=== PATIENT | female | born 1950 | race Caucasian/White ===

== ENCOUNTER 2016-09-02 17:47 | Inpatient (IN) | payer BC ==
[~2016-09-02] VITALS: Ht 152.4 cm; Wt 86.0 kg
[~2016-09-02 17:47] MED LIST: ADV25050 INH; AMLO-147 PO; ASC500 PO; DOCU250C58 PO; FAMO-95 PO; FER325 PO; FLORANEX PO; FLUO10CA66 PO; FURO20TA3 PO; HC1C30 TOP; IPRA4AER IH; IPRA4AER INHALATION; ISOS30TA5 PO; LAS20I PO; LEVO50TA71 PO; LOSA100T47 PO; MEMA5TAB14 PO; METF500T4 PO; METO-448 PO; OLAN2.5T4 PO; OMEG-135 PO; PIOG15TA21 PO; POT25TAB PO; PRAV10TA43 PO; QVAR40 INH; SUCR1TAB56 PO
[2016-09-02] MEDS ORDERED: SOD CHLORIDE 0.9% 500 ML IV STA (18:02)
[2016-09-02] MEDS ORDERED: morphine 2 MG INJ IV STA (18:02)
[2016-09-02 18:21] VITALS: TEMP 98.6
[2016-09-02 18:28] LABS: ADD SCAN DIFF NO
[2016-09-02 18:31] LABS: HEMATOCRIT 43.7 % (37.0-47.0); HEMOGLOBIN 13.7 g/dl (12.0-16.0); MEAN CORPUSCULAR HEMOGLOBIN 27.2 pg (29.0-33.0); MEAN CORPUSCULAR HGB CONC 31.4 g/dl (32.0-37.0); MEAN CORPUSCULAR VOLUME 86.7 fl (82.0-101.0); MEAN PLATELET VOLUME 9.1 fl (7.4-10.4); PLATELET COUNT 295 10^3/UL (140-415); RED BLOOD COUNT 5.04 10^6/ul (4.20-5.40); RED CELL DISTRIBUTION WIDTH 18.6 % (11.5-14.5); WHITE BLOOD COUNT 6.8 10^3/ul (4.8-10.8)
[2016-09-02 18:43] LABS: ALBUMIN 4.2 g/dl (3.3-4.9); INR 1.14; PROTIME 14.6 Sec (12.2-14.2); PT RATIO 1.1
[2016-09-02 18:44] LABS: PARTIAL THROMBOPLASTIN TIME 38.7 Sec (25.0-35.0); POTASSIUM 4.7 mmol/L (3.5-5.1)
[2016-09-02 18:46] LABS: ALBUMIN/GLOBULIN RATIO 0.95; BILIRUBIN,INDIRECT 0.4 mg/dl (0-1.1); BILIRUBIN,TOTAL 0.4 mg/dl (0.2-1.3); CREATININE 1.33 mg/dl (0.44-1.00); TOTAL PROTEIN 8.6 g/dl (6.1-8.1)
[2016-09-02 18:47] LABS: CALCIUM 10.2 mg/dl (8.4-10.2)
[2016-09-02] MEDS ORDERED: SOD CHLORIDE 0.9% 1,000 ML IV ONE (19:04)
--- NOTE | 2016-09-02 19:09 | RADRPT ---
PROCEDURE: CT abdomen and pelvis without IV contrast. CLINICAL INDICATION: Abdominal pain TECHNIQUE: CT scan of the abdomen and pelvis without contrast was performed on the [employer] volumetric [address] scanner. The patient was scanned without intravenous contrast. Coronal and sagittal refo rmatted images were obtained from the axial source images. The CTDI vol is 19.03 mGy and the DLP is 1074.01 mGy-cm. COMPARISON: 12/22/2014 FINDINGS: CT abdomen: Mild dependent changes in the lung bases is seen. The remaining lung bases are clear. The heart si ze is not enlarged and is without pericardial thickening or effusion. Pericardial calcifications are again noted. The liver is normal in size and density and is without focal mass or intrahepatic biliary dilatation . The spleen is normal in size and homogeneous in density. The stomach is grossly unremarkable. T he pancreas as visualized is normal. The gallbladder and biliary tree are unremarkable and there is no evidence for common bile duct dilatation. The adrenal glands are symmetric and normal. The rig ht kidney is atrophic. Bilateral renal cortical scarring is seen. No renal calculus or obstructive uropathy or mass lesion is seen. The aorta is of normal in caliber. There is no retroperitoneal lymphadenopathy. The jorge a hepatis region is clear. A large ventral hernia is once again seen. Segments of small bowel as well as the transverse colon are once again seen within the hernia sac. Multiple moderately dilated and fluid-f illed segments of small bowel is seen. A transition point is seen within the hernia sac. No inflam matory changes in the periappendiceal region is seen. CT pelvis: The pelvic organs are normal. The pelvic sidewalls and inguinal regions are clear. No pelvic mass, lymphadenopathy, or free fluid is seen. No acute inflammation is seen. The urinary bladder is wit hin normal limits. Degenerative spondylosis of the lumbar spine is seen. No osteolytic or osteoblastic lesion is detec vj. IMPRESSION: 1. CT findings consistent with a small bowel obstruction secondary to a ventral hernia as described above. 2. Transverse colon and the ventral hernia sac once again seen. 3. Atrophic right kidney which is mildly decreased in size compared to the prior examination with b ilateral renal cortical scarring again seen. RPTAT: HPNM Mehul Cornell, Physician Date Time Electronically viewed and signed by Mehul Cornell, Physician on 09/02/2016 19:09 /
[2016-09-02 19:24] LABS: ADD UMIC YES; URINE BILIRUBIN (Dip) NEGATIVE (NEGATIVE); URINE BLOOD (Dip) NEGATIVE (NEGATIVE); URINE COLOR LT. YELLOW (YELLOW); URINE GLUCOSE (Dip) NEGATIVE (NEGATIVE); URINE KETONES (Dip) NEGATIVE (NEGATIVE); URINE LEUKOCYTE ESTERASE (Dip) TRACE (NEGATIVE); URINE NITRITE (Dip) NEGATIVE (NEGATIVE); URINE TOTAL PROTEIN (Dip) 2+ (NEGATIVE); URINE UROBILINOGEN (Dip) 0.2 E.U./dL (0.1-1.0)
[2016-09-02] MEDS ORDERED: MIDAZOLAM 1 MG/ML 2 ML INJ IV ONE (19:30)
[2016-09-02 19:49] LABS: SQUAMOUS EPITHELIAL CELL,UR OCCASIONAL; URINE RBCS 0-2 /HPF (0)
[2016-09-02 19:51] LABS: BACTERIA,URINE RARE
[2016-09-02] MEDS ORDERED: ACETAMINOPHEN 325 MG TAB PO PRN (20:00)
[2016-09-02] MEDS ORDERED: ONDANSETRON 4 MG INJ IV PRN (20:00)
--- NOTE | 2016-09-02 20:41 | ERA ---
ER Documentation Chief Complaint Date/Time DATE: 09/02/16 TIME: 20:27 Chief Complaint ABD PAIN X3 DAYS, NO N/V HPI 66-year-old female with a history of diabetes, hypertension, and perforated gastric ulcer status post ex lap in 2010 complicated by a large ventral hernia presenting with abdominal pain for about 3 days. The pain is diffuse, constant , burning in quality, 5 out of 10. Worse with eating, nothing makes it better. She has associated constipation and difficulty passing gas. She denies nausea , vomiting, dysuria, fevers, chills. ROS All systems reviewed and are negative except as per history of present illness. Medications Home Meds Active Scripts Albuterol/Ipratropium* (Combivent Respimat*) 20-100 Mcg/Inh - 4 Gm Aer.w.adap, 1 PUFF IH QID Y for SHORTNESS OF BREATH, #1 VIAL Prov:GABEJANUARYFaustina . 12/25/14 Salmeterol Xinaf/Fluticasone* (Advair*) 250-50 Diskus Inhaler, 1 INH INH BID, # 1 VIAL Prov:JANUARY BERNALFaustina . 12/25/14 Furosemide* (Lasix*) 10 Mg/Ml Soln, 40 MG PO BID DIURETICS for 30 Days Prov:GONZALEZ BERNALFORMERLY [facility], [facility] HOSPITALFaustina . 12/25/14 Lactobacillus Acidoph/Bulgaricus* (Floranex*) 1 Tab Chew, 1 TAB PO BID for 30 Days Prov:GABEJANUARYFaustina . 12/25/14 Ascorbic Acid (Vitamin C) 500 Mg Tab, 500 MG PO DAILY for 30 Days, TAB Prov:GABEGONZALEZJOO . 12/25/14 Famotidine* (Pepcid* AC) 20 Mg Tab, 20 MG PO BID for 30 Days Prov:GABEJANUARYFaustina . 12/25/14 Ferrous Sulfate* (Ferrous Sulfate*) 325 Mg Tabec, 325 MG PO BID for 30 Days Prov:GABEGONZALEZJOO . 12/25/14 Furosemide* (Furosemide*) 20 Mg Tablet, 40 MG PO DAILY for 30 Days, TAB Prov:GABEGONZALEZJOO . 12/25/14 Reported Medications Albuterol/Ipratropium* (Combivent Respimat*) 20-100 Mcg/Inh - 4 Gm Aer.w.adap, 1 PUFF INHALATION QID, #1 INHALER 10/07/15 Beclomethasone Dip (Qvar 40) 1 Puff Inha, 1 PUFF INH BID, #1 INHALER 10/07/15 Ascorbic Acid (Vitamin C) 500 Mg Tab, 500 MG PO DAILY, TAB 10/07/15 Pot Chloride/Pot Bicarb/Cit Ac (Potassium Cl 25 Meq Tab Eff) 25 Meq Tablet.eff, 25 MEQ PO 10/07/15 Memantine HCl (Memantine HCl) 5 Mg Tablet, 5 MG PO BID, #60 TAB 10/07/15 Metoprolol Tartrate* (Lopressor*) 25 Mg Tab, 12.5 MG PO BID, #60 TAB 10/07/15 Levothyroxine Sodium* (Levoxyl*) 50 Mcg Tablet, 50 MCG PO AC BREAKFAST, TAB 12/21/14 Hydrocortisone* Topical (Hydrocortisone* Topical) 1%-28.35 Gm Cream..g., 1 APPLIC TOP BID, TUB 10/16/14 Fish Oil* (Fish Oil*) 1,000 Mg Cap, 1000 MG PO DAILY, CAP 10/16/14 Fluoxetine Hcl* (Prozac*) 10 Mg Capsule, 10 MG PO DAILY, CAP 10/16/14 Metformin Hcl* (Metformin Hcl*) 500 Mg Tablet, 500 MG PO BID, TAB 10/16/14 Amlodipine Besylate* (Amlodipine Besylate*) 10 Mg Tablet, 10 MG PO DAILY, TAB 10/16/14 Docusate Sodium* (Colace*) 250 Mg Capsule, 250 MG PO DAILY, CAP 10/16/14 Sucralfate* (Carafate*) 1 Gm Tab, 1 GM PO QID, TAB 10/16/14 Olanzapine* (Zyprexa*) 2.5 Mg Tablet, 7.5 MG PO QHS, TAB 10/16/14 Pravastatin Sodium* (Pravastatin Sodium*) 10 Mg Tablet, 10 MG PO HS, TAB 10/16/14 Pioglitazone Hcl* (Pioglitazone Hcl*) 15 Mg Tablet, 15 MG PO DAILY, TAB 10/16/14 Losartan Potassium* (Cozaar*) 100 Mg Tablet, 100 MG PO DAILY, TAB 10/16/14 Isosorbide Mononitrate* (Isosorbide Mononitrate*) 30 Mg Tab.er.24h, 30 MG PO BID , TAB 10/16/14 Allergies Allergies: Coded Allergies: sulfamethoxazole (Verified Allergy, Unknown, rash, 10/05/15) trimethoprim (Verified Allergy, Unknown, rash, 10/05/15) PMhx/Soc History of Surgery: Yes (Ex lap,) Anesthesia Reaction: No Hx Respiratory Disorders: Yes (sleep apnea) Hx Cardiac Disorders: Yes (htn, hld) Hx Psychiatric Problems: Yes (psychosis, depression) Hx Miscellaneous Medical Probl: Yes (hernia repair, perforated gastric ulcer) Hx Alcohol Use: No Hx Substance Use: No Hx Tobacco Use: No Smoking Status: Unknown if ever smoked FmHx Family History: No diabetes Physical Exam Vitals Vital Signs Date Time Temp Pulse Resp B/P Pulse Ox O2 Delivery O2 Flow Rate FiO2 09/02/16 18:21 98.6 87 17 156/120 94 Room Air 09/02/16 17:49 98.6 97 17 139/73 92 Physical Exam Const: Well-appearing, obese, no distress Head: Atraumatic Eyes: Normal Conjunctiva ENT: Normal External Ears, Nose and Mouth. Neck: Full range of motion..~ No meningismus. Resp: Clear to auscultation bilaterally Cardio: Regular rate and rhythm, no murmurs Abd: Large ventral hernia extending the full length of her well-healed surgical incision site, tympanitic to percussion, diffusely tender, no rebound or guarding. No overlying skin changes. Hyperactive bowel sounds Skin: No petechiae or rashes Back: No midline or flank tenderness Ext: No cyanosis, or edema Neur: Awake and alert Psych: Normal Mood and Affect Result Diagram: 09/02/16181409/02/165 Results 24 hrs Laboratory Tests Test 09/02/16 18:15 09/02/16 19:05 White Blood Count 6.810^3/ul Red Blood Count 5.0410^6/ul Hemoglobin 13.7g/dl Hematocrit 43.7% Mean Corpuscular Volume 86.7fl Mean Corpuscular Hemoglobin 27.2pg Mean Corpuscular Hemoglobin Concent 31.4g/dl Red Cell Distribution Width 18.6% Platelet Count 67772^3/UL Mean Platelet Volume 9.1fl Neutrophils % 64.4% Lymphocytes % 18.0% Monocytes % 17.1% Eosinophils % 0.1% Basophils % 0.3% Nucleated Red Blood Cells % 0.0/100WBC Neutrophils # 4.410^3/ul Lymphocytes # 1.210^3/ul Monocytes # 1.210^3/ul Eosinophils # 0.010^3/ul Basophils # 0.010^3/ul Nucleated Red Blood Cells # 0.010^3/ul Prothrombin Time 14.6Sec Prothrombin Time Ratio 1.1 INR International Normalized Ratio 1.14 Activated Partial Thromboplast Time 38.7Sec Sodium Level 141mmol/L Potassium Level 4.7mmol/L Chloride Level 96mmol/L Carbon Dioxide Level 28mmol/L Anion Gap 22 Blood Urea Nitrogen 54mg/dl Creatinine 1.33mg/dl Glucose Level 150mg/dl Calcium Level 10.2mg/dl Total Bilirubin 0.4mg/dl Direct Bilirubin 0.00mg/dl Indirect Bilirubin 0.4mg/dl Aspartate Amino Transf (AST/SGOT) 36IU/L Alanine Aminotransferase (ALT/SGPT) 39IU/L Alkaline Phosphatase 119IU/L Total Protein 8.6g/dl Albumin 4.2g/dl Globulin 4.40g/dl Albumin/Globulin Ratio 0.95 Urine Color LT. YELLOW Urine Clarity SLIGHTLY CLOUDY Urine pH 5.5 Urine Specific [place] 1.020 Urine Ketones NEGATIVE Urine Nitrite NEGATIVE Urine Bilirubin NEGATIVE Urine Urobilinogen 0.2 E.U./dL Urine Leukocyte Esterase TRACE Urine Microscopic RBC 0-2/HPF Urine Microscopic WBC 2-5/HPF Urine Squamous Epithelial Cells OCCASIONAL Urine Amorphous Urates MANY Urine Bacteria RARE Urine Hemoglobin NEGATIVE Urine Glucose NEGATIVE% Urine Total Protein 2+ Current Medications Medications (Trade) Dose Ordered Sig/Sloane Route PRN Reason Start Time Stop Time Status Last Admin Dose Admin Sodium Chloride (NS) 500 ml @ 500 mls/hr Q1H STAT IV 09/02/16 18:02 09/02/16 19:01 DC 09/02/16 18:15 Morphine Sulfate 2 mg 2 mg ONCE STAT IV 09/02/16 18:02 09/02/16 18:05 DC 09/02/16 18:16 Sodium Chloride (NS) 1,000 ml @ 1,000 mls/hr Q1H ONCE IV 09/02/16 19:04 09/02/16 20:03 DC 09/02/16 20:25 Midazolam HCl (Versed) 2 mg ONCE ONCE IV 09/02/16 19:30 09/02/16 19:31 DC 09/02/16 20:25 Ondansetron HCl (Zofran Inj) 4 mg BRIDGE ORDER PRN IV NAUSEA AND/OR VOMITING 09/02/16 20:00 09/03/16 19:59 Acetaminophen (Tylenol Tab) 650 mg ER BRIDGE PRN PO MILD PAIN/FEVER 09/02/16 20:00 09/03/16 19:59 Procedures/MDM Labs: Elevated BUN and creatinine Imaging: CT abdomen and pelvis: IMPRESSION: 1. CT findings consistent with a small bowel obstruction secondary to a ventral hernia as described above. 2. Transverse colon and the ventral hernia sac once again seen. 3. Atrophic right kidney which is mildly decreased in size compared to the prior examination with bilateral renal cortical scarring again seen. RPTAT: HPNM Physician Argenis Date Time Electronically viewed and signed by Physician Argenis on 09/02/2016 19 :09 Patient is presenting with abdominal pain and constipation. Vitals are stable. I have a low suspicion for perforated viscus, AAA, aortic dissection, or colitis. CT abdomen and pelvis consistent with small bowel obstruction. Labs showed evidence of likely dehydration with elevation in BUN and creatinine. There was no evidence of UTI. Versed was given and nasogastric tube placed for decompression. I spoke with Dr. Thomas, the surgeon on-call, who requested a small bowel follow-through in the morning. The patient will be admitted to the hospital for IV fluids, treatment of her SBO and surgical evaluation. Critical Care Time: 30 minutes Treatments/Evaluations: Close monitoring and treatment of unstable vital signs, cardiorespiratory, and neurologic status, while maintaining tight balance of fluid, respiratory, and cardiac interventions. This time includes discussing the case with the patient and the patients family. This time does not include all procedures stated elsewhere in this record. This time also includes reviewing old records, labs and radiological studies. This time includes examining and re-examining the patient. Additionally, this time also includes arranging care with admitting and consulting physicians. Accepting Care Team: Current data and ongoing care discussed. Time: Time of admission Primary Provider: Ivan Consulting: William Outstanding Data: none Departure Diagnosis: Primary Impression: Small bowel obstruction Additional Impression: Acute renal failure Qualified Code: N17.9 - Acute renal failure, unspecified acute renal failure type Condition: Serious JERROD CHANCE MD Sep 02, 2016 20:40
[2016-09-02 20:47] LABS: MONOCYTE # 1.1 10^3/ul (0.3-0.9); NEUTROPHIL # 3.2 10^3/ul (1.6-7.5)
[2016-09-02 20:48] LABS: PLATELET ESTIMATE PLT APPEAR ADEQUATE
[2016-09-02 21:30] VITALS: BP 143/86; RESP 21
[2016-09-02] MEDS: morphine 2 MG INJ IV PRN (23:38)
[2016-09-03] MEDS: SOD CHLORIDE 0.9% 1,000 ML IV SCH ×4 (00:13→20:15)
[2016-09-03] MEDS ORDERED: NACL 0.9% 3 ML SYG IV SCH (00:30)
[2016-09-03] MEDS ORDERED: METOCLOPRAMIDE 10 MG INJ IV PRN (00:30)
--- NOTE | 2016-09-03 00:41 | HP ---
Date/Time of Note Date/Time of Note DATE: 09/03/16 TIME: 00:40 Assessment/Plan VTE Prophylaxis VTE Prophylaxis Intervention: anti-embolic stocking Lines/Catheters IV Catheter Type (from Nrs): Peripheral IV Urinary Cath still in place: No Assessment/Plan Assessment/Plan 1) Small bowel obstruction - Admit to Med Surg - NGT placed in ER - NPO - Pain Control - CONSULT: Surgery - Dr. Thomas 2) Acute renal insufficiency/Acute kidney injury - Monitor - IV Hydration - AM Labs 3) Dementia with history of Psychosis - Resume usual medications once she is able to take PO 4) Ventral Hernia, Large - Dr. Thomas may or may not give advise on the management of this hernia. It will likely need to be addressed as an outpatient. HPI/ROS Admit Date/Time Admit Date/Time Sep 02, 2016 at 19:58 Hx of Present Illness 66-year-old female with a history of diabetes, hypertension, and perforated gastric ulcer status post ex lap in 2010 complicated by a large ventral hernia presenting with abdominal pain for about 3 days. The pain is diffuse, constant , burning in quality, 5 out of 10 per the ER physician. Worse with eating, nothing makes it better. She has associated constipation and difficulty passing gas. She denies nausea, vomiting, dysuria, fevers or chills. ER Course by ER Physician: CT abdomen and pelvis consistent with small bowel obstruction. Labs showed evidence of likely dehydration with elevation in BUN and creatinine. There was no evidence of UTI. Versed was given and nasogastric tube placed for decompression. I spoke with Dr. Thomas, the surgeon on-call, who requested a small bowel follow-through in the morning. The patient will be admitted to the hospital for IV fluids, treatment of her SBO and surgical evaluation. ROS General: Admits: Denies: Fever, Chills, Poor Appetite, Generalized Body Aches Eyes: Admits: Denies: Blurry Vision, Double Vision HENT: Admits: Denies: Ear Pain/Pressure, Runny/Stuffy Nose, Sore Throat Cardiovascular: Admits: Denies: Chest Pain, Palpitations, Leg Swelling Pulmonary: Admits: Denies: Cough, Wheeze, Shortness of Breath Gastrointestinal: Admits: Abdominal Pain, Large Hernia, Constipation Denies: Nausea, Vomiting, Diarrhea, Blood in Stool, Black-Colored Stool Urogenital: Admits: Denies: Burning with Urination, Urinary Frequency Musculoskeletal: Admits: Denies: Joint Pain, Joint Swelling, Muscle Pain Neurological: Admits: Denies: Headache, Dizziness, Numbness, Tingling, Shooting Pains Integumentary: Admits: Denies: Rash, Itch PMH/Family/Social Past Medical History HTN; Dyslipidemia; Psychosis; Depression; Sleep Apnea Past Surgical History Hernia Repair; Perforated Gastric Ulcer/Ex Lap, Past Surgical Hx: no surgical history Family History Significant Family History: other (No diabetes) Social History Smoking Status: Never smoker Exam/Review of Systems Vital Signs Vitals Vital Signs Date Time Temp Pulse Resp B/P Pulse Ox O2 Delivery O2 Flow Rate FiO2 09/02/16 21:30 98.2 92 21 143/86 91 09/02/16 21:15 Nasal Cannula 2.0 Exam Exam General: Elderly female, alert and oriented, in new Eyes: Sclera White, EOMI HENT: Normocephalic/Atraumatic, External Ears/Nose Normal, Moist Mucus Membranes Neck: Supple, Trachea Midline Cardiovascular: Normal Rate, Regular Rhythm, Normal S1 and S2, No Murmur, No Extra Sounds. Radial pulse +2/4. No pedal Edema. Pulmonary: Clear to Auscultation Bilaterally, Normal Respiratory Effort, No Rales, Rhonchi or Wheezes Gastrointestinal: Normoactive Bowel Sounds, Large ventral hernia extending the full length of her well-healed surgical incision site, diffusely tender, no rebound or guarding. No overlying skin changes. Urogenital: Deferred Musculoskeletal: Normal Muscle Bulk and Tone Neurological: CN II - XII Grossly Intact, Non-Focal, Speech Normal Integumentary: Normal Moisture and Temperature, Good Turgor, No Jaundice, No Rash, Dry skin on legs Lymphatic: No Cervical Lymphadenopathy Psychiatric: Appropriate Mood and Affect, Good Eye Contact, ansers appropriately Labs Result Diagram: 09/02/16181409/02/161814 Medications Medications Home Meds Active Scripts Albuterol/Ipratropium* (Combivent Respimat*) 20-100 Mcg/Inh - 4 Gm Aer.w.adap, 1 PUFF IH QID Y for SHORTNESS OF BREATH, #1 VIAL Prov:SHAYNE BERNAL 12/25/14 Salmeterol Xinaf/Fluticasone* (Advair*) 250-50 Diskus Inhaler, 1 INH INH BID, # 1 VIAL Prov:SHAYNE BERNAL 12/25/14 Furosemide* (Lasix*) 10 Mg/Ml Soln, 40 MG PO BID DIURETICS for 30 Days Prov:SHAYNE BERNAL 12/25/14 Lactobacillus Acidoph/Bulgaricus* (Floranex*) 1 Tab Chew, 1 TAB PO BID for 30 Days Prov:GONZALEZ BERNALNOV[facility] 12/25/14 Ascorbic Acid (Vitamin C) 500 Mg Tab, 500 MG PO DAILY for 30 Days, TAB Prov:[facility]ONZALEZ [facility]ERNALNOV[facility] 12/25/14 Famotidine* (Pepcid* AC) 20 Mg Tab, 20 MG PO BID for 30 Days Prov:GONZALEZ BERNALUNC [facility]. 12/25/14 Ferrous Sulfate* (Ferrous Sulfate*) 325 Mg Tabec, 325 MG PO BID for 30 Days Prov:GONZALEZ [facility]ERNALNOV[facility] 12/25/14 Furosemide* (Furosemide*) 20 Mg Tablet, 40 MG PO DAILY for 30 Days, TAB Prov:SHAYNE BERNAL . 12/25/14 Reported Medications Albuterol/Ipratropium* (Combivent Respimat*) 20-100 Mcg/Inh - 4 Gm Aer.w.adap, 1 PUFF INHALATION QID, #1 INHALER 10/07/15 Beclomethasone Dip (Qvar 40) 1 Puff Inha, 1 PUFF INH BID, #1 INHALER 10/07/15 Ascorbic Acid (Vitamin C) 500 Mg Tab, 500 MG PO DAILY, TAB 10/07/15 Pot Chloride/Pot Bicarb/Cit Ac (Potassium Cl 25 Meq Tab Eff) 25 Meq Tablet.eff, 25 MEQ PO 10/07/15 Memantine HCl (Memantine HCl) 5 Mg Tablet, 5 MG PO BID, #60 TAB 10/07/15 Metoprolol Tartrate* (Lopressor*) 25 Mg Tab, 12.5 MG PO BID, #60 TAB 10/07/15 Levothyroxine Sodium* (Levoxyl*) 50 Mcg Tablet, 50 MCG PO AC BREAKFAST, TAB 12/21/14 Hydrocortisone* Topical (Hydrocortisone* Topical) 1%-28.35 Gm Cream..g., 1 APPLIC TOP BID, TUB 10/16/14 Fish Oil* (Fish Oil*) 1,000 Mg Cap, 1000 MG PO DAILY, CAP 10/16/14 Fluoxetine Hcl* (Prozac*) 10 Mg Capsule, 10 MG PO DAILY, CAP 10/16/14 Metformin Hcl* (Metformin Hcl*) 500 Mg Tablet, 500 MG PO BID, TAB 10/16/14 Amlodipine Besylate* (Amlodipine Besylate*) 10 Mg Tablet, 10 MG PO DAILY, TAB 10/16/14 Docusate Sodium* (Colace*) 250 Mg Capsule, 250 MG PO DAILY, CAP 10/16/14 Sucralfate* (Carafate*) 1 Gm Tab, 1 GM PO QID, TAB 10/16/14 Olanzapine* (Zyprexa*) 2.5 Mg Tablet, 7.5 MG PO QHS, TAB 10/16/14 Pravastatin Sodium* (Pravastatin Sodium*) 10 Mg Tablet, 10 MG PO HS, TAB 10/16/14 Pioglitazone Hcl* (Pioglitazone Hcl*) 15 Mg Tablet, 15 MG PO DAILY, TAB 10/16/14 Losartan Potassium* (Cozaar*) 100 Mg Tablet, 100 MG PO DAILY, TAB 10/16/14 Isosorbide Mononitrate* (Isosorbide Mononitrate*) 30 Mg Tab.er.24h, 30 MG PO BID , TAB 10/16/14 Current Medications Medications (Trade) Dose Ordered Sig/[place] Route PRN Reason Start Time Stop Time Status Last Admin Dose Admin Sodium Chloride (NS) 500 ml @ 500 mls/hr Q1H STAT IV 09/02/16 18:02 09/02/16 19:01 DC 09/02/16 18:15 Morphine Sulfate 2 mg 2 mg ONCE STAT IV 09/02/16 18:02 09/02/16 18:05 DC 09/02/16 18:16 Sodium Chloride (NS) 1,000 ml @ 1,000 mls/hr Q1H ONCE IV 09/02/16 19:04 09/02/16 20:03 DC 09/02/16 20:25 Midazolam HCl (Versed) 2 mg ONCE ONCE IV 09/02/16 19:30 09/02/16 19:31 DC 09/02/16 20:25 Ondansetron HCl (Zofran Inj) 4 mg BRIDGE ORDER PRN IV NAUSEA AND/OR VOMITING 09/02/16 20:00 09/03/16 19:59 Acetaminophen (Tylenol Tab) 650 mg ER BRIDGE PRN PO MILD PAIN/FEVER 09/02/16 20:00 09/03/16 19:59 Procedures Procedures Laboratory Tests Test 09/02/16 18:15 09/02/16 19:05 White Blood Count 6.810^3/ul Red Blood Count 5.0410^6/ul Hemoglobin 13.7g/dl Hematocrit 43.7% Mean Corpuscular Volume 86.7fl Mean Corpuscular Hemoglobin 27.2pg Mean Corpuscular Hemoglobin Concent 31.4g/dl Red Cell Distribution Width 18.6% Platelet Count 01311^3/UL Mean Platelet Volume 9.1fl Neutrophils % 64.4% Lymphocytes % 18.0% Monocytes % 17.1% Eosinophils % 0.1% Basophils % 0.3% Nucleated Red Blood Cells % 0.0/100WBC Neutrophils # 4.410^3/ul Lymphocytes # 1.210^3/ul Monocytes # 1.210^3/ul Eosinophils # 0.010^3/ul Basophils # 0.010^3/ul Nucleated Red Blood Cells # 0.010^3/ul Prothrombin Time 14.6Sec Prothrombin Time Ratio 1.1 INR International Normalized Ratio 1.14 Activated Partial Thromboplast Time 38.7Sec Sodium Level 141mmol/L Potassium Level 4.7mmol/L Chloride Level 96mmol/L Carbon Dioxide Level 28mmol/L Anion Gap 22 Blood Urea Nitrogen 54mg/dl Creatinine 1.33mg/dl Glucose Level 150mg/dl Calcium Level 10.2mg/dl Total Bilirubin 0.4mg/dl Direct Bilirubin 0.00mg/dl Indirect Bilirubin 0.4mg/dl Aspartate Amino Transf (AST/SGOT) 36IU/L Alanine Aminotransferase (ALT/SGPT) 39IU/L Alkaline Phosphatase 119IU/L Total Protein 8.6g/dl Albumin 4.2g/dl Globulin 4.40g/dl Albumin/Globulin Ratio 0.95 Urine Color LT. YELLOW Urine Clarity SLIGHTLY CLOUDY Urine pH 5.5 Urine Specific [place] 1.020 Urine Ketones NEGATIVE Urine Nitrite NEGATIVE Urine Bilirubin NEGATIVE Urine Urobilinogen 0.2 E.U./dL Urine Leukocyte Esterase TRACE Urine Microscopic RBC 0-2/HPF Urine Microscopic WBC 2-5/HPF Urine Squamous Epithelial Cells OCCASIONAL Urine Amorphous Urates MANY Urine Bacteria RARE Urine Hemoglobin NEGATIVE Urine Glucose NEGATIVE% Urine Total Protein 2+ PROCEDURE: CT abdomen and pelvis without IV contrast. CLINICAL INDICATION: Abdominal pain COMPARISON: 12/22/2014 IMPRESSION: 1. CT findings consistent with a small bowel obstruction secondary to a ventral hernia as described above. 2. Transverse colon and the ventral hernia sac once again seen. 3. Atrophic right kidney which is mildly decreased in size compared to the prior examination with bilateral renal cortical scarring again seen. JUNAID CARMICHAEL DO Sep 03, 2016 00:40 2. Transverse colon and the ventral hernia sac once again seen. 3. Atrophic right kidney which is mildly decreased in size compared to the prior examination with bilateral renal cortical scarring again seen. JUNAID CARMICHAEL DO Sep 03, 2016 00:40 09/02/16 21:15 Nasal Cannula 2.0 Labs Result Diagram: 09/02/16181409/02/16 181 Medications Medications Current Medications Morphine Sulfate 2 mg 2 mg Q2H PRN IV PAIN Last administered on 09/02/16t 23:38 ; Admin Dose 2 MG; Start 09/02/16 at 23:30 Sodium Chloride (NS) 1,000 ml @ 100 mls/hr Q10H IV ; Start 09/03/16 at 00:13; Status UNV Metoclopramide HCl (Reglan) 10 mg Q6H PRN IV NAUSEA AND/OR VOMITING; Start 03/12 at 00:30; Status UNV Famotidine (Pepcid Iv) 20 mg Q12 IV ; Start 09/03/16 at 09:00; Status UNV Salmeterol Xinafoate/ Fluticasone (Advair 250/50 Diskus) 1 inh BID INH ; Start 09/03/16 at 09:00; Status UNV Miscellaneous Information 1 puff BID INH ; Start 09/03/16 at 09:00; Status UNV Furosemide (Lasix) 20 mg DAILY@06 IV ; Start 09/03/16 at 06:00; Status UNV Levothyroxine Sodium (Synthroid Iv) 50 mcg DAILY ONCE IV ; Start 09/03/16 at 09 :00; Stop 09/03/16 at 09:01; Status UNV Labetalol HCl (Labetalol) 10 mg BID ONCE IV ; Start 09/03/16 at 09:00; Stop 03/12 at 09:01; Status JUNAID VILLASEÑOR DO Sep 03, 2016 00:40
[2016-09-03] MEDS ORDERED: GLUCOSE GEL 15 GRAM TUBE BUCCAL PRN (01:00)
[2016-09-03] MEDS ORDERED: GLUCAGON 1 MG INJ IM PRN (01:00)
[2016-09-03] MEDS: Insulin NOVOLOG SS MILD Algorithm (NPO/TPN/ENTERAL FEEDS) SC SCH ×6 (01:00→20:21)
[2016-09-03] MEDS ORDERED: GLUCOSE GEL 15 GRAM TUBE PO PRN ×2 (01:00)
[2016-09-03] MEDS ORDERED: DEXTROSE 50% 50 ML SYRINGE IV PRN (01:00)
[2016-09-03] MEDS ORDERED: INSULIN ASPART [NOVOLOG] 3 ML PEN SC SCH (01:00)
[2016-09-03 04:54] LABS: ADD SCAN DIFF NO
[2016-09-03 04:59] LABS: BASOPHILS % 0.4 % (0.0-2.0); EOSINOPHILS % 0.5 % (0.0-7.0); HEMATOCRIT 42.7 % (37.0-47.0); HEMOGLOBIN 13.1 g/dl (12.0-16.0); LYMPHOCYTES # 0.9 10^3/ul (0.8-2.9); LYMPHOCYTES % 16.8 % (15.0-51.0); MEAN CORPUSCULAR HGB CONC 30.7 g/dl (32.0-37.0); MEAN PLATELET VOLUME 9.1 fl (7.4-10.4); MONOCYTE # 0.9 10^3/ul (0.3-0.9); NEUTROPHIL # 3.6 10^3/ul (1.6-7.5); NEUTROPHILS % 65.1 % (39.0-77.0); PLATELET COUNT 263 10^3/UL (140-415); RED BLOOD COUNT 4.85 10^6/ul (4.20-5.40); RED CELL DISTRIBUTION WIDTH 18.6 % (11.5-14.5); WHITE BLOOD COUNT 5.5 10^3/ul (4.8-10.8)
[2016-09-03] MEDS: LEVOTHYROXINE 100 MCG VIAL IV SCH (05:21)
[2016-09-03 05:23] LABS: POTASSIUM 4.4 mmol/L (3.5-5.1)
[2016-09-03 05:25] LABS: CREATININE 1.44 mg/dl (0.44-1.00)
[2016-09-03 05:26] LABS: CALCIUM 9.3 mg/dl (8.4-10.2); MAGNESIUM 1.9 mg/dl (1.7-2.5)
[2016-09-03] MEDS ORDERED: FUROSEMIDE 20 MG INJ IV SCH (06:00)
[2016-09-03 08:04] VITALS: BP 135/72; RESP 20
[2016-09-03] MEDS: ALBUTEROL/IPRATROPIUM (NEB) 3 ML AMP HHN SCH ×4 (08:23→20:21)
[2016-09-03] MEDS ORDERED: LABETALOL HCL 20MG INJ IV ONE (09:00)
[2016-09-03] MEDS ORDERED: FAMOTIDINE 20 MG INJ IV SCH (09:00)
[2016-09-03] MEDS ORDERED: BECLOMETHASONE DIP INH SCH (09:00)
[2016-09-03] MEDS: FAMOTIDINE 20 MG INJ IV SCH (09:00)
[2016-09-03] MEDS ORDERED: DIATR MEGLU/DIATRIZOATE SODIUM 120 ML BTL ONE ×2 (11:19)
--- NOTE | 2016-09-03 11:40 | PN ---
Date/Time of Note Date/Time of Note DATE: 09/03/16 TIME: 11:35 Assessment/Plan VTE Prophylaxis VTE Prophylaxis Intervention: SCD's Lines/Catheters IV [facility] Type [facility] Peripheral IV Urinary Cath still in place: No Assessment/Plan Chief Complaint/Hosp Course Assessment and plan 1. Small bowel obstruction. Continue n.p.o. for now. NG tube was placed in the ER. Continue with analgesics and IV hydration. Surgeon following. Patient for small bowel follow-through 2. Acute on likely chronic kidney disease. Monitor renal panel. Continue IV hydration. Lace Roller following. 3. History of dementia with psychosis. Patient to be resumed on her Prozac and Zyprexa once able to tolerate oral intake. 4. History of dementia. Continue on Namenda once able to tolerate oral intake 5. Essential hypertension. Will provide with IV antihypertensives as needed 6. Obesity. Weight reduction to be advised 7. Diabetes. Continue on insulin regimen 8. History of COPD. Patient resumed on bronchodilators as needed Disposition and plan: Patient for small bowel follow-through. Await surgeon recommendations. Discussed plan of care with Dr. Carroll Problems: Subjective 24 Hr Interval Summary Free Text/Dictation patient for small bowel follow through Exam/Review of Systems Vital Signs Vitals Vital Signs Date Time Temp Pulse Resp B/P Pulse Ox O2 Delivery O2 Flow Rate FiO2 09/03/16 10:15 Nasal Cannula 2.0 09/03/16 08:35 107 20 96 09/03/16 08:04 98.5 135/72 Intake and Output 09/02/16 09/02/16 09/03/16 14:59 22:59 06:59 Intake Total 800 ml Output Total 100 ml Balance 700 ml Exam patient for small bowel follow through Results Result Diagram: 09/03/16 0418 09/03/16 0418 Results 24 hrs Laboratory Tests Test 09/02/16 18:15 09/02/16 19:05 09/03/16 01:21 09/03/16 04:18 White Blood Count 6.8 5.5 Red Blood Count 5.04 # 4.85 Hemoglobin 13.7 # 13.1 Hematocrit 43.7 # 42.7 Mean Corpuscular Volume 86.7 88.0 Mean Corpuscular Hemoglobin 27.2 L 27.0 L Mean Corpuscular Hemoglobin Concent 31.4 L 30.7 L Red Cell Distribution Width 18.6 H 18.6 H Platelet Count 295 263 Mean Platelet Volume 9.1 # 9.1 Neutrophils % 47.0 65.1 Lymphocytes % 15.0 16.8 Monocytes % 16.0 H 17.0 H Eosinophils % 0.5 Basophils % 0.4 Nucleated Red Blood Cells % 0.0 0.0 Neutrophils # 3.2 3.6 Lymphocytes # 1.0 0.9 Monocytes # 1.1 H 0.9 Eosinophils # 0.0 Basophils # 0.0 Nucleated Red Blood Cells # 0.0 Platelet Estimate PLT APPEAR ADEQUATE Prothrombin Time 14.6 H Prothrombin Time Ratio 1.1 INR International Normalized Ratio 1.14 Activated Partial Thromboplast Time 38.7 H Sodium Level 141 143 Potassium Level 4.7 4.4 Chloride Level 96 L 100 Carbon Dioxide Level 28 30 Anion Gap 22 H 17 H Blood Urea Nitrogen 54 H 54 H Creatinine 1.33 H 1.44 H Glucose Level 150 119 Calcium Level 10.2 9.3 Total Bilirubin 0.4 Direct Bilirubin 0.00 Indirect Bilirubin 0.4 Aspartate Amino Transf (AST/SGOT) 36 Alanine Aminotransferase (ALT/SGPT) 39 Alkaline Phosphatase 119 Total Protein 8.6 H Albumin 4.2 Globulin 4.40 H Albumin/Globulin Ratio 0.95 Urine Color LT. YELLOW Urine Clarity SLIGHTLY CLOUDY Urine pH 5.5 Urine Specific [place] 1.020 Urine Ketones NEGATIVE Urine Nitrite NEGATIVE Urine Bilirubin NEGATIVE Urine Urobilinogen 0.2 E.U./dL Urine Leukocyte Esterase TRACE H Urine Microscopic RBC 0-2 Urine Microscopic WBC 2-5 Urine Squamous Epithelial Cells OCCASIONAL Urine Amorphous Urates MANY Urine Bacteria RARE Urine Hemoglobin NEGATIVE Urine Glucose NEGATIVE Urine Total Protein 2+ H Bedside Glucose 104 Magnesium Level 1.9 Test 09/03/16 05:19 09/03/16 08:18 Bedside Glucose 110 121 Medications Medications Current Medications Morphine Sulfate 2 mg 2 mg Q2H PRN IV PAIN Last administered on 09/02/16 23:38 ; Admin Dose 2 MG; Start 09/02/16 at 23:30 Sodium Chloride (NS) 1,000 ml @ 100 mls/hr Q10H IV Last administered on 01:23; Admin Dose 100 MLS/HR; Start 09/03/16 at 00:13 Metoclopramide HCl (Reglan) 10 mg Q6H PRN IV NAUSEA AND/OR VOMITING; Start 03/12 at 00:30 Salmeterol Xinafoate/ Fluticasone (Advair 250/50 Diskus) 1 inh BID INH ; Start 09/03/16 at 09:00 Furosemide (Lasix) 20 mg DAILY@06 IV Last administered on 09/03/16 05:21; Admin Dose 20 MG; Start 09/03/16 at 06:00; Status Future Hold Levothyroxine Sodium (Synthroid Iv) 50 mcg DAILY@06 IV Last administered on 05:21; Admin Dose 50 MCG; Start 09/03/16 at 06:00 Labetalol HCl (Labetalol) 10 mg BID ONCE IV ; Start 09/03/16 at 09:00; Stop 03/12 at 09:01; Status UNV Famotidine (Pepcid Iv) 20 mg DAILY IV Last administered on 09/03/16 09:00; Admin Dose 20 MG; Start 09/03/16 at 09:00 Mometasone Furoate (Asmanex) 1 puff BID INH ; Start 09/03/16 at 09:00 Miscellaneous Information 1 ea NOTE XX ; Start 09/03/16 at 01:00 Glucose (Glutose) 15 gm Q15M PRN PO DECREASED GLUCOSE; Start 09/03/16 at 01:00 Glucose (Glutose) 22.5 gm Q15M PRN PO DECREASED GLUCOSE; Start 09/03/16 at 01: 00 Dextrose (D50w Syringe) 25 ml Q15M PRN IV DECREASED GLUCOSE; Start 09/03/16 at 01:00 Dextrose (D50w Syringe) 50 ml Q15M PRN IV DECREASED GLUCOSE; Start 09/03/16 at 01:00 Glucagon (Glucagen) 1 mg Q15M PRN IM DECREASED GLUCOSE; Start 09/03/16 at 01:00 Glucose (Glutose) 15 gm Q15M PRN BUCCAL DECREASED GLUCOSE; Start 09/03/16 at 01 :00 Insulin Aspart (Novolog Insulin Pen) (Adult SC Insulin - Mild Algorithm)... Q4 SC ; Start 09/03/16 at 01:00 ARIC VICTORIA Sep 03, 2016 11:40
--- NOTE | 2016-09-03 12:18 | CONS ---
DATE OF ADMISSION: 09/02/2016 DATE OF CONSULTATION: 09/03/2016 TYPE OF CONSULTATION: Nephrology. REASON FOR CONSULTATION: Acute kidney injury. PHYSICIAN REQUESTING CONSULTATION: Dr. Love. HISTORY OF PRESENT ILLNESS: This is a 66-year-old female with a past medical history of diabetes, h ypertension, history of perforated gastric ulcer, who presented to [facility] with abdominal pain for 3 days. The patient describes the pain as midepigastric 5/10, diffuse, constant . The patient upon arrival to the emergency room had a CT scan of the pelvis that showed evidence o f small-bowel obstruction. The patient had NG tube placed, was admitted to med/surg for further horacio luation. While on med/surg, the patient was placed on IV hydration. There were no reports of hemop tysis, hematemesis or hematochezia. In terms of the patient's renal history, the patient had a prev ious baseline creatinine of 0.8 mg/dL. On admission, the patient had a creatinine of 1.33 mg/dL, wh ich is increased to 1.44 mg/dL over the last 24 hours. There have been no rashes noted, no frothy u rine. The patient has been on diuretics of Lasix. PAST MEDICAL HISTORY: As stated above, history of hypertension, history of dementia, psychosis to o bserve. PAST SURGICAL HISTORY: History of hernia repair, history of gastric ulcer perforation. ALLERGIES: NO KNOWN DRUG ALLERGIES. FAMILY HISTORY: Noncontributory. SOCIAL HISTORY: Does not drink, smoke or do drugs. MEDICATIONS: The patient's medications have been reviewed. REVIEW OF SYSTEMS: A 14-point review of systems was conducted. Pertinent positives stated in HPI, otherwise negative. PHYSICAL EXAMINATION: VITAL SIGNS: Blood pressure 135/72, respirations 20, pulse 99, temperature 98.5. HEENT: Head is normocephalic. NECK: Supple. HEART: Regular rate. LUNGS: Show diminished breath sounds at base. ABDOMEN: Soft, positive tenderness to palpation. EXTREMITIES: Negative for clubbing, cyanosis, or edema. DERMATOLOGIC: No rashes. MUSCULOSKELETAL: No joint effusions. NEUROLOGIC: Limited exam due to lack of patient cooperation. LABORATORY DATA: Shows sodium 143, potassium 4.4, chloride 100, BUN 54, creatinine 1.44. White cou nt 5.5, hemoglobin 13.1, hematocrit 42.7, platelet 263. IMAGING STUDIES: As stated in HPI. ASSESSMENT AND PLAN: This is a 66-year-old female who presents with: 1. Nonoliguric acute kidney injury with previous baseline creatinine 0.8 mg/dL. Etiology of acute kidney injury is likely secondary to hemodynamics, questionable tubular injury. The patient's urina lysis does not show any active sediment. Therefore, low suspicion for acute GI vasculitis or inters titial nephritis. Plan at this point is to continue current treatment plan with IV hydration. Will discontinue Lasix. Will continue supportive care, renally dose meds, avoid nephrotoxins, monitor I 's and O's closely. 2. Mineral bone disorder. Will monitor calcium and phosphorus levels. 3. Small-bowel obstruction. The patient is currently n.p.o. with NG tube in place, pending small b owel series. 4. History of dementia. 5. Ventral hernia. Continue to monitor. Consider surgical evaluation. 6. History of hypertension. Patient is currently normotensive. Continue to monitor. 7. Hypothyroidism. Continue Synthroid. Thank you, Dr. Love, for this interesting consult. It will be a pleasure to follow the patient wit joyce bobo throughout the hospital course. Dictated By: TALA HAMMOND/CINDY Conf#: [id number] DID#: [id number]
--- NOTE | 2016-09-03 12:23 | RADRPT ---
PROCEDURE: Retroperitoneal US. CLINICAL INDICATION: Renal insufficiency TECHNIQUE: Multiple sonographic images of the kidneys and retroperitoneum were obtained. The imag es were reviewed on a PACS workstation. COMPARISON: 09/02/2016 FINDINGS: The kidneys are normal in contour, cortical thickness and cortical echogenicity. The right kidney measures 7.3 cm. The left kidney measures 890.5 cm. No kidney stones are visualized. There is no evidence for hydronephrosis. The urinary bladder is normal. RPTAT: AA IMPRESSION: Slightly small right kidney. Otherwise unremarkable. .Jean Paul Starks MD, Date Time Electronically viewed and signed by .Jean Paul Starks MD, on 09/03/2016 12:23 .S/
--- NOTE | 2016-09-03 12:24 | CONS ---
DATE OF ADMISSION: 09/02/2016 DATE OF CONSULTATION: 09/03/2016 REASON FOR CONSULTATION: Small-bowel obstruction. HISTORY OF PRESENT ILLNESS: The patient is a morbidly obese 65-year-old diabetic female who has a m assive ventral incisional hernia. She presents to the emergency room with 3 days of abdominal pain and no bowel movements, not associated with nausea or vomiting, but imaging consisting of a CT showe d a small-bowel obstruction with a transition point within this large hernia sac. She is admitted. Surgical consultation was requested in that regard. PAST MEDICAL HISTORY: Her initial surgery was for exploratory laparotomy for a perforated gastric u lcer in 2010. REVIEW OF SYSTEMS: HEAD, EARS, EYES, NOSE AND THROAT: Unremarkable. No history of shortness of breath or pneumonia. CARDIAC: No history of chest pain, NE or arrhythmia. Patient does have a history of hypertension a nd is diabetic. ABDOMEN: As in the HPI. EXTREMITIES: Unremarkable. OUTPATIENT MEDICATIONS: Well outlined in the chart. ALLERGIES: SULFA. PHYSICAL EXAMINATION: GENERAL: The patient is a morbidly obese, non-Guatemalan speaking 66-year-old female who is awake and alert, in no acute distress. HEENT: Unremarkable. There is a nasogastric tube in place draining enteric content which is not fe culent. LUNGS: Clear. ABDOMEN: There is well healed vertical midline scar with a massive ventral incisional hernia occupy ing the entire lower abdomen. EXTREMITIES: Unremarkable. LABORATORY DATA: The patient's hematocrit is 42 with a white count of 5500 without left shift. BUN , glucose, electrolytes significant for a BUN of 54 and a creatinine 1.4, glucose is 119. INR is 1. 14. IMPRESSION: Possible small-bowel obstruction. PLAN: The patient will undergo a small bowel follow through the NG tube. She is currently undergoi ng a renal ultrasound. Further recommendations for this patient will depend on the results of her f urther workup and clinical course. Because of the patient's morbid obesity and because of the massi ve size of this hernia any surgical undertaking in this patient will be significant. Dictated By: GENESIS KENNY/CINDY Conf#: [id number] DID#: [id number]
--- NOTE | 2016-09-03 16:36 | RADRPT ---
PROCEDURE: XR small bowel follow-through CLINICAL INDICATION: Abdominal pain. Small bowel obstruction TECHNIQUE: A a total of 13 images from a small bowel follow-through are submitted to the PACS for review as follows: two general activities therapist images, one 5 minute image, one 10-minute image, one 15-minute image, one 20-minute image, one 30-minute image, two 45-minute images, two 60-minute images and two 2-hour images. COMPARISON: CT abdomen and pelvis 09/02/2016 FINDINGS: City Distribution Clerk image demonstrates interval placement of a nasogastric to the tip pointing inferiorly and to t he left within the stomach. There is gaseous distension of multiple small bowel loops. The 5-minute and 10-minute images demonstrate persistent contrast media within the gastric fundus as does the 15 and image, no contrast seen within the gaseous distended loops of small bowel up to the 30-minute i mage. Contrast is seen within dilated loops of duodenum and jejunum and 45 minutes as well as reflux ing into the distal esophagus. The caliber of the dilated small bowel loops is estimated at 6 cm. At 60 minutes there is some contrast within the mid jejunum as well as in the distal esophagus. At 2 hours there is increased contrast within the stomach and decreased in the small bowel. No contrast is visualized in the colon. RPTAT:HJJR IMPRESSION: Images submitted confirm a mid small bowel obstruction demonstrated on the CT of 09/02/2016 with gas tric, duodenal and jejunal distension as well as reflux of contrast media into the distal esophagus for this patient with a new nasogastric tube. Enteric contrast media does not reach the colon 2 hour s after administration. Physician Ryanne Date Time Electronically viewed and signed by Physician Ryanne on 09/03/2016 16:36 /
[2016-09-03 18:46] LABS: ADD UMIC YES; URINE BILIRUBIN (Dip) NEGATIVE (NEGATIVE); URINE BLOOD (Dip) NEGATIVE (NEGATIVE); URINE COLOR LT. YELLOW (YELLOW); URINE GLUCOSE (Dip) NEGATIVE (NEGATIVE); URINE KETONES (Dip) NEGATIVE (NEGATIVE); URINE LEUKOCYTE ESTERASE (Dip) TRACE (NEGATIVE); URINE NITRITE (Dip) NEGATIVE (NEGATIVE); URINE TOTAL PROTEIN (Dip) 1+ (NEGATIVE); URINE UROBILINOGEN (Dip) 0.2 E.U./dL (0.1-1.0)
[2016-09-03 19:03] LABS: BACTERIA,URINE FEW; TRANSITIONAL EPI CELLS,URINE MANY; URINE RBCS 0-2 /HPF (0)
[2016-09-03 19:28] LABS: PROTEIN URINE 91.7 mg/dl (0.0-9.9)
[2016-09-03 19:41] VITALS: BP 144/90; RESP 20
[2016-09-03 19:47] VITALS: BP 142/70; PULSE 100; RESP 18
[2016-09-03] MEDS: MOMETASONE 0.24 GM INHALER INH SCH ×2 (20:15→20:18)
[2016-09-03] MEDS: SALMETEROL/FLUTICASONE 250/50 INHA INH SCH ×2 (20:15→20:18)
[2016-09-03] MEDS: morphine 2 MG INJ IV PRN ×2 (20:16→23:58)
[2016-09-03 23:36] VITALS: BP 122/75; PULSE 114; RESP 19
[2016-09-04] VITALS (11 sets, daily range): BP systolic 111–195; BP diastolic 60–92; PULSE 98–126; RESP 17–22
[2016-09-04] MEDS: Insulin NOVOLOG SS MILD Algorithm (NPO/TPN/ENTERAL FEEDS) SC SCH ×6 (01:00→21:00)
[2016-09-04] MEDS: ACETAMINOPHEN 650 MG SUPP PR PRN ×2 (01:27→21:24)
[2016-09-04] MEDS: SOD CHLORIDE 0.9% 1,000 ML IV SCH ×2 (01:38→06:13)
[2016-09-04] MEDS ORDERED: METOPROLOL 50 MG TAB PO ONE (05:00)
[2016-09-04] MEDS ORDERED: SOD CHLORIDE 0.9% 500 ML IV ONE (05:00)
[2016-09-04] MEDS ORDERED: LEVOFLOXACIN 500MG/D5W (PMX) 100 ML IVPB SCH (05:00)
[2016-09-04 05:05] LABS: ADD SCAN DIFF NO
[2016-09-04] MEDS: LEVOTHYROXINE 100 MCG VIAL IV SCH (05:11)
[2016-09-04 05:13] LABS: ABNORMAL IP MESSAGE 1; HEMATOCRIT 47.1 % (37.0-47.0); HEMOGLOBIN 14.2 g/dl (12.0-16.0); MEAN CORPUSCULAR HEMOGLOBIN 27.1 pg (29.0-33.0); MEAN CORPUSCULAR HGB CONC 30.1 g/dl (32.0-37.0); MEAN CORPUSCULAR VOLUME 89.9 fl (82.0-101.0); MEAN PLATELET VOLUME 9.2 fl (7.4-10.4); PLATELET COUNT 295 10^3/UL (140-415); RED BLOOD COUNT 5.24 10^6/ul (4.20-5.40); RED CELL DISTRIBUTION WIDTH 18.7 % (11.5-14.5); WHITE BLOOD COUNT 3.7 10^3/ul (4.8-10.8)
[2016-09-04 05:27] LABS: POTASSIUM 4.4 mmol/L (3.5-5.1)
[2016-09-04 05:30] LABS: CREATININE 2.28 mg/dl (0.44-1.00)
[2016-09-04 05:31] LABS: CALCIUM 9.4 mg/dl (8.4-10.2)
[2016-09-04 05:36] LABS: MAGNESIUM 2.2 mg/dl (1.7-2.5)
[2016-09-04] MEDS: ALBUTEROL/IPRATROPIUM (NEB) 3 ML AMP HHN SCH ×4 (08:55→20:05)
[2016-09-04] MEDS: SALMETEROL/FLUTICASONE 250/50 INHA INH SCH ×2 (09:00→21:24)
[2016-09-04] MEDS: MOMETASONE 0.24 GM INHALER INH SCH ×2 (09:00→21:24)
[2016-09-04] MEDS: SOD CHLORIDE 0.45% 1,000 ML IV SCH ×2 (09:00→17:00)
[2016-09-04] MEDS: FAMOTIDINE 20 MG INJ IV SCH (09:26)
--- NOTE | 2016-09-04 09:39 | PN ---
DATE: 09/04/2016 SUBJECTIVE: The patient yesterday had a small bowel follow through which showed images of a small-b owel obstruction. The patient remains n.p.o. with NG tube. No other events noted. The patient cont inues to have abdominal pain, urinary output and was not adequately recorded. OBJECTIVE: VITAL SIGNS: Blood pressure is 132/81, respiratory rate 20, pulse 66, temperature 98.4. I's AND O'S: The patient had 1.7 liters in, 2.1 liters out, urinary output unclear. HEENT: Head is normocephalic. Pupils are reactive to light. NECK: Supple. HEART: Regular rate. LUNGS: Show diminished breath sounds at the base. ABDOMEN: Soft, positive hernia. EXTREMITIES: Negative for clubbing, cyanosis, no edema. DERMATOLOGIC: No rashes. MUSCULOSKELETAL: No joint effusions. NEUROLOGIC: No change in exam. MEDICATIONS: The patient's medications have been reviewed. LABORATORY DATA: Shows sodium 151, potassium 4.4, chloride 104, bicarbonate 27, BUN 69, creatinine 2.28. White count 3.7, hemoglobin 14.2, hematocrit 47.1, platelet count is 295. The patient's urin alysis shows a FENa of less than 1%, a protein/creatinine ratio of approximately 1 gram per gram of creatinine. Renal ultrasound shows no evidence of obstruction, but small right kidney noted. ASSESSMENT AND PLAN: 1. Oliguric kidney injury with a previous baseline creatinine of 0.8 mg/dL. Etiology of acute kidne y injury is multifactorial secondary to hemodynamics, prerenal volume depletion with possible tubula r injury. The patient's FENa is less than 1% consistent with prerenal etiology. The patient's urin alysis otherwise bland shows no active sediment. Renal ultrasound shows no obstruction, although th e possibility of underlying CKD. Plan at this point would be to continue aggressive IV hydration. Continue normal saline for another 1 to 2 liters. Continue supportive care, renally dose all medica tions, avoid nephrotoxins. Continue to monitor I's and O's closely. 2. Hypernatremia. The patient has a free water deficit of approximately 2 liters. Etiology seconda ry to insensible loss. Plan is to continue volume repletion. Would consider changing IV fluids fro m normal saline to half NS once patient is volume replete. Will monitor serial sodium levels. 3. Mineral bone disorder. Monitor calcium and phosphorus levels. 4. Anemia. We will monitor hemoglobin. 5. Small-bowel obstruction. The patient is status post small bowel series which shows evidence of obstruction. Will continue supportive care. The patient will continue n.p.o. Follow up with gener al surgery recommendations. 6. History of hypertension. Continue to monitor. 7. Hypothyroidism. Continue Synthroid. 8. History of ventral hernia. 9. History of dementia. Dictated By: TALA HAMMOND/CINDY Conf#: [id number] DID#: [id number]
[2016-09-04 10:14] LABS: LYMPHOCYTES # 0.6 10^3/ul (0.8-2.9); MONOCYTE # 0.4 10^3/ul (0.3-0.9); NEUTROPHIL # 1.3 10^3/ul (1.6-7.5)
[2016-09-04 10:15] LABS: PLATELETS CLUMPS OCCASIONAL
--- NOTE | 2016-09-04 11:27 | PN ---
DATE: 09/04/2016 The patient's small bowel follow-through is compatible with a complete small-bowel obstruction. The patient continues to have very high nasogastric output with no bowel function. At this point, we w ill have to proceed and arrange for surgery. The patient will require medical clearance. This amalia l be a huge surgical undertaking because of the complete absence of the anterior abdominal wall. Th e patient will require an exploratory laparotomy with possible bowel resection and repair of this ma ssive hernia with likely biologic mesh. I have discussed the procedure and risks in detail with the patient and daughter, who have an excellent understanding of her situation and agree to the propose d plan of therapy as outlined. Dictated By: GENESIS KENNY/CINDY Conf#: [id number] DID#: [id number]
--- NOTE | 2016-09-04 12:24 | RADRPT ---
PROCEDURE: XR Abdomen 1 View. CLINICAL INDICATION: Abdominal pain and distension, small bowel obstruction follow-up. TECHNIQUE: AP abdomen x-ray. COMPARISON: Small-bowel series September 03, 2016 FINDINGS: Nasogastric tube has its distal end in the expected location of the stomach. Multiple air and oral contrast filled loops of small bowel continue to be identified throughout the abdomen measuring up t o approximately 6.3 cm in diameter. No oral contrast is identified in the colon. No organomegaly i s identified. No abnormal calculi are observed. Degenerative changes are seen in the hips and spine . IMPRESSION: Continued oral contrast and air-filled, dilated loops of small bowel throughout the abdomen, compati ble with small bowel obstruction. No contrast identified in the colon. RPTAT: AA .Bernardo Boykin MD, Date Time Electronically viewed and signed by .Bernardo Boykin MD, on 09/04/2016 12:24 .P/
[2016-09-04] MEDS: morphine 2 MG INJ IV PRN ×2 (13:53→16:36)
--- NOTE | 2016-09-04 15:23 | PN ---
Date/Time of Note Date/Time of Note DATE: 09/04/16 TIME: 15:20 Assessment/Plan VTE Prophylaxis VTE Prophylaxis Intervention: SCD's Lines/Catheters IV Catheter Type (from Nrs): Peripheral IV Urinary Cath still in place: No Assessment/Plan Chief Complaint/Hosp Course Assessment and plan 1. Small bowel obstruction. Continue n.p.o. for now. NG tube was placed. Continue with analgesics and IV hydration. Surgeon following. SBFT with bowel obstruction. plan for surgical intervention. Computer Meteorologist to follow for pre-op clearance 2. Acute on likely chronic kidney disease. Monitor renal panel. Continue IV hydration. Transverse Abdominal Muscle Surgeon following. 3. History of dementia with psychosis. Patient to be resumed on her Prozac and Zyprexa once able to tolerate oral intake.. appears stable at present 4. History of dementia. Continue on Namenda once able to tolerate oral intake. no active issue at this time 5. Essential hypertension. Will provide with IV antihypertensives as needed 6. Obesity. Weight reduction advised 7. Diabetes. Continue on insulin regimen 8. History of COPD. Patient resumed on bronchodilators as needed Disposition and plan: tentative plan for surgical intervention. cont with nephrology recs for renal insufficiency. keep inpatient Discussed plan of care with Dr. Carroll Problems: Subjective 24 Hr Interval Summary Free Text/Dictation reports pain controlled with morphine. still noted with hypoactive bowel sounds Exam/Review of Systems Vital Signs Vitals Vital Signs Date Time Temp Pulse Resp B/P Pulse Ox O2 Delivery O2 Flow Rate FiO2 09/04/16 12:26 112 09/04/16 12:09 97.6 20 119/76 96 09/04/16 11:41 Nasal Cannula 3.0 Intake and Output 09/03/16 09/03/16 09/04/16 15:00 23:00 07:00 Intake Total 800 ml 980 ml Output Total 800 ml 1300 ml Balance 0 ml -320 ml Exam Constitutional: alert, oriented, minimal distress from abd pain Psych: nl mood/affect Head: normocephalic Eyes: nl conjunctiva Neck: supple, non-tender, No jvd Respiratory: clear to auscultation, normal air movement Cardiovascular: regular rate and rhythm Gastrointestinal: distended, noted with ventral hernia. pain on palpation Musculoskeletal: nl extremities to inspection, nl gait and stance Extremities: normal pulses Neurological: nl mental status, nl speech, nl strength Skin: nl turgor, No rash or lesions Results Result Diagram: 09/04/16 0430 09/04/16 0420 Results 24 hrs Laboratory Tests Test 09/03/16 16:35 09/03/16 17:22 09/03/16 20:12 09/04/16 01:15 Urine Color LT. YELLOW Urine Clarity SLIGHTLY CLOUDY Urine pH 5.0 Urine Specific [place] 1.020 Urine Ketones NEGATIVE Urine Nitrite NEGATIVE Urine Bilirubin NEGATIVE Urine Urobilinogen 0.2 E.U./dL Urine Leukocyte Esterase TRACE H Urine Microscopic RBC 0-2 Urine Microscopic WBC 5-10 Urine Transitional Epithelial Cells MANY Urine Amorphous Urates FEW Urine Bacteria FEW Urine Hemoglobin NEGATIVE Urine Random Creatinine 86.14 Urine Random Sodium 17 L Urine Glucose NEGATIVE Urine Total Protein 91.7 H Bedside Glucose 111 112 124 Test 09/04/16 04:20 09/04/16 04:30 09/04/16 05:26 09/04/16 08:27 Sodium Level 151 H Potassium Level 4.4 Chloride Level 104 Carbon Dioxide Level 27 Anion Gap 24 #H Blood Urea Nitrogen 69 H Creatinine 2.28 H Glucose Level 147 Calcium Level 9.4 White Blood Count 3.7 #L Red Blood Count 5.24 Hemoglobin 14.2 Hematocrit 47.1 H Mean Corpuscular Volume 89.9 Mean Corpuscular Hemoglobin 27.1 L Mean Corpuscular Hemoglobin Concent 30.1 L Red Cell Distribution Width 18.7 H Platelet Count 295 Mean Platelet Volume 9.2 Neutrophils % 34.0 L Band Neutrophils % 38.0 H Lymphocytes % 15.0 Monocytes % 12.0 H Eosinophils % Basophils % 1.0 Neutrophils # 1.3 L Lymphocytes # 0.6 L Monocytes # 0.4 Eosinophils # Basophils # 0.0 Clumped Platelets OCCASIONAL Phosphorus Level 8.0 H Magnesium Level 2.2 Bedside Glucose 123 119 Test 09/04/16 12:08 Bedside Glucose 123 Medications Medications Current Medications Morphine Sulfate (morphine) 2 mg Q2H PRN IV PAIN Last administered on t 13:53; Admin Dose 2 MG; Start 09/02/16 at 23:30 Metoclopramide HCl (Reglan) 10 mg Q6H PRN IV NAUSEA AND/OR VOMITING; Start 03/12 at 00:30 Salmeterol Xinafoate/ Fluticasone (Advair 250/50 Diskus) 1 inh BID INH Last administered on 09/04/16 09:00; Admin Dose 1 INH; Start 09/03/16 at 09:00 Levothyroxine Sodium (Synthroid Iv) 50 mcg DAILY@06 IV Last administered on 05:11; Admin Dose 50 MCG; Start 09/03/16 at 06:00 Famotidine (Pepcid Iv) 20 mg DAILY IV Last administered on 09/04/16 09:26; Admin Dose 20 MG; Start 09/03/16 at 09:00 Mometasone Furoate (Asmanex) 1 puff BID INH Last administered on 09/04/16 09: 00; Admin Dose 1 PUFF; Start 09/03/16 at 09:00 Miscellaneous Information 1 ea NOTE XX ; Start 09/03/16 at 01:00 Glucose (Glutose) 15 gm Q15M PRN PO DECREASED GLUCOSE; Start 09/03/16 at 01:00 Glucose (Glutose) 22.5 gm Q15M PRN PO DECREASED GLUCOSE; Start 09/03/16 at 01: 00 Dextrose (D50w Syringe) 25 ml Q15M PRN IV DECREASED GLUCOSE; Start 09/03/16 at 01:00 Dextrose (D50w Syringe) 50 ml Q15M PRN IV DECREASED GLUCOSE; Start 09/03/16 at 01:00 Glucagon (Glucagen) 1 mg Q15M PRN IM DECREASED GLUCOSE; Start 09/03/16 at 01:00 Glucose (Glutose) 15 gm Q15M PRN BUCCAL DECREASED GLUCOSE; Start 09/03/16 at 01 :00 Insulin Aspart (Novolog Insulin Pen) (Adult SC Insulin - Mild Algorithm)... Q4 SC ; Start 09/03/16 at 01:00 Acetaminophen 650 mg 650 mg Q6H PRN IN ELEVATED TEMPERATURE Last administered on 09/04/16 01:27; Admin Dose 650 MG; Start 09/04/16 at 01:00 Sodium Chloride 1,000 ml @ 125 mls/hr Q8H IV Last administered on 09/04/16 09 :00; Admin Dose 125 MLS/HR; Start 09/04/16 at 09:00 Levofloxacin/ Dextrose (Levaquin 250 Mg/ D5W 50 ml (Pmx)) 50 ml @ 50 mls/hr Q48H IVPB ; Start 09/06/16 at 05:00 ARIC VICTORIA Sep 04, 2016 15:23
--- NOTE | 2016-09-04 15:56 | RADRPT ---
PROCEDURE: XR Chest. CLINICAL INDICATION: Shortness of breath. TECHNIQUE: Single frontal view. COMPARISON: 12/24/2014. FINDINGS: There is mild atelectasis at the lung bases. There is bilateral interstitial disease consistent wit h pulmonary edema, worse than seen previously. The heart is enlarged. There is calcification in the aorta consistent with atherosclerosis. A naso gastric tube has been inserted with the tip in the stomach. There is no pleural effusion. There is no pneumothorax. IMPRESSION: 1. Mild atelectasis at the lung bases. 2. Pulmonary edema. 3. Cardiomegaly and atherosclerosis. 4. Nasogastric tube tip in the stomach. RPTAT: QQ .Garrick Corcoran MD, MD Date Time Electronically viewed and signed by .Garrick Corcoran MD, on 09/04/2016 15:56 .R/
[2016-09-04 16:13] LABS: POTASSIUM 4.8 mmol/L (3.5-5.1)
[2016-09-04 16:15] LABS: CREATININE 3.66 mg/dl (0.44-1.00)
[2016-09-04 16:16] LABS: CALCIUM 8.9 mg/dl (8.4-10.2)
--- NOTE | 2016-09-04 17:05 | RADRPT ---
Echocardiogram Report Patient Name: ANASTASIA CHUN Gender: Female Date: 1950 Study Date: 04-Sep-2016 Leather Grainer: Abigail Golden RDCS Location: 523 Ref. Physician: ARIC VICTORIA Quality: Technically Difficult Study Procedures: Transthoracic echocardiogram with complete 2D, M-Mode, and doppler examination. Indications: suspect Congestive Heart Failure. Shortness of breath. 2D/M Mode Doppler Measurement Value Normal Ranges Measurement Value Normal Ranges LVIDd 2D 3.3 3.5 - 5.6 cm AV Peak Kranthi 1.2 m/sec LVIDs 2D 2.2 2.1 - 4.1 cm AV Peak PG 6.0 mmHg LVPWd 2D 1.3 0.6 - 1.1 cm LVOT Peak Kranthi 0.8 m/sec IVSd 2D 1.3 0.6 - 1.1 cm LVOT Peak PG 2.4 mmHg AoR Diam 2D 2.7 2.0 - 3.7 cm EDV 2D 44.2 cm3 ESV 2D 10.4 cm3 LA Dimen 2D 2.8 2.3 - 4.0 cm Findings Left Ventricle: Normal left ventricular systolic function. Normal left ventricular cavity size. Moderate concentric left ventricular hypertrophy. Ejection fraction is visually estimated at 65 %. Right Ventricle: Not well visualized. Left Atrium: The left atrium is normal in size. Right Atrium: Not well visualized. Mitral Valve: Normal appearance and function of the mitral valve with trace physiologic regurgitation. Aortic Valve: Normal appearance of the aortic valve. No significant aortic stenosis or insufficiency. Tricuspid Valve: Normal appearance and function of the tricuspid valve with trace physiologic regurgitation. Normal right ventricular systolic pressure. Pulmonic Valve: Normal pulmonic valve appearance. Pericardium: Normal pericardium with no significant pericardial effusion. Aorta: Normal aortic root. IVC: The IVC is not well visualized. Conclusions 1.Normal left ventricular systolic function. Normal left ventricular cavity size. Moderate concentric left ventricular hypertrophy. Ejection fraction is visually estimated at 65 %. 2.Normal appearance and function of the mitral valve with trace physiologic regurgitation. 3.Normal appearance of the aortic valve. No significant aortic stenosis or insufficiency. 4.Normal appearance and function of the tricuspid valve with trace physiologic regurgitation. Normal right ventricular systolic pressure. 5.suboptimal study. Electronically Signed By: Sulaiman Osei 04-Sep-2016 17:05:00 -0700 Patient Name: ANASTASIA CHUN Study Date: 04-Sep-[id number]
[2016-09-04] MEDS ORDERED: FUROSEMIDE 40 MG INJ IV ONE ×3 (17:30→23:00)
--- NOTE | 2016-09-04 17:34 | CONS ---
Date/Time of Note Date/Time of Note DATE: 09/04/16 TIME: 17:19 Assessment/Plan Assessment/Plan Chief Complaint/Hosp Course Pre-operative evaluation: The pt is to undergo at least moderate risk surgery as per review of surgical evaluation notes, the plan is for extensive surgery. She is currently in acute decompensated heart failure which puts her at high risk for surgery. If the pt's SBO is thought to be a medical urgency/emergency, then she should have the surgery as planned (tomorrow afternoon from my understanding). If she is to proceed with surgery, we can manage her CHF post- op but she will likely have a more prolonged course of intubation. If the surgery can be safely delayed, she will need diuresis (and if not responsive, she will need HD as she is currently oliguric). Acute diastolic heart failure: Preserved EF. Decompensated heart failure secondary to acute renal failure. Needs diuresis or may need HD Acute renal failure: thought to be from ATN. Oliguric. If does not respond to diuretics, will need HD SBO/ventral hernia: plan for surgery as above DM -please refer to above discussion regarding timing of surgery -lasix 60mg two doses tonight as well as IV diuril (if unresponsive, may need HD ) -CXR in am -will follow along Problems: Consultation Date/Type/Reason Admit Date/Time Sep 02, 2016 at 19:58 Date of Consultation: Sep 04, 2016 Type of Consultation: Cardiology Reason for Consultation Pre-operative evaluation Referring Provider: ARIC VICTORIA Hx of Present Illness 66 yo F with a h/o CVA (30+ yrs ago), DM, HTN, ventral hernia, who presented with abdominal pain and was found to have SBO obstruction in her hernia. She has been managed conservatively so far but the plan is for surgery tomorrow. The pt has cognitive impairment and her daughter is the DPOA. The pt herself denies any current symptoms including chest pain, SOB, abdominal pain, nausea. per hPI Past Medical History per HPI Past Surgical History Past Surgical Hx: no surgical history Social History Smoking Status: Never smoker Exam/Review of Systems Vital Signs Vitals Vital Signs Date Time Temp Pulse Resp B/P Pulse Ox O2 Delivery O2 Flow Rate FiO2 09/04/16 16:27 98 09/04/16 15:54 93 3.0 09/04/16 15:54 28 Nasal Cannula 4/11/17 15:45 98.9 140/88 Intake and Output 09/03/16 09/03/16 09/04/16 15:00 23:00 07:00 Intake Total 800 ml 980 ml Output Total 800 ml 1300 ml Balance 0 ml -320 ml Exam Constitutional: alert Psych: no complaints Head: normocephalic Neck: jvd (10cm) Respiratory: crackles/rales (significant crackles throughout ), No clear to auscultation, No wheezing Cardiovascular: edema (trace), No regular rate and rhythm (tachycardic ) Neurological: nl mental status, nl speech Results Result Diagram: 09/04/16 0430 09/04/16 1553 Results 24 hrs Laboratory Tests Test 09/03/16 17:22 09/03/16 20:12 09/04/16 01:15 09/04/16 04:20 Bedside Glucose 111 112 124 Sodium Level 151 H Potassium Level 4.4 Chloride Level 104 Carbon Dioxide Level 27 Anion Gap 24 #H Blood Urea Nitrogen 69 H Creatinine 2.28 H Glucose Level 147 Calcium Level 9.4 Test 09/04/16 04:30 09/04/16 05:26 09/04/16 08:27 09/04/16 12:08 White Blood Count 3.7 #L Red Blood Count 5.24 Hemoglobin 14.2 Hematocrit 47.1 H Mean Corpuscular Volume 89.9 Mean Corpuscular Hemoglobin 27.1 L Mean Corpuscular Hemoglobin Concent 30.1 L Red Cell Distribution Width 18.7 H Platelet Count 295 Mean Platelet Volume 9.2 Neutrophils % 34.0 L Band Neutrophils % 38.0 H Lymphocytes % 15.0 Monocytes % 12.0 H Eosinophils % Basophils % 1.0 Neutrophils # 1.3 L Lymphocytes # 0.6 L Monocytes # 0.4 Eosinophils # Basophils # 0.0 Clumped Platelets OCCASIONAL Phosphorus Level 8.0 H Magnesium Level 2.2 Bedside Glucose 123 119 123 Test 09/04/16 15:53 Sodium Level 148 H Potassium Level 4.8 Chloride Level 105 Carbon Dioxide Level 24 Anion Gap 24 H Blood Urea Nitrogen 82 H Creatinine 3.66 #H Glucose Level 147 Calcium Level 8.9 Medications Medications Current Medications Morphine Sulfate (morphine) 2 mg Q2H PRN IV PAIN Last administered on t 16:36; Admin Dose 2 MG; Start 09/02/16 at 23:30 Metoclopramide HCl (Reglan) 10 mg Q6H PRN IV NAUSEA AND/OR VOMITING; Start 03/12 at 00:30 Salmeterol Xinafoate/ Fluticasone (Advair 250/50 Diskus) 1 inh BID INH Last administered on 09/04/16 09:00; Admin Dose 1 INH; Start 09/03/16 at 09:00 Levothyroxine Sodium (Synthroid Iv) 50 mcg DAILY@06 IV Last administered on 05:11; Admin Dose 50 MCG; Start 09/03/16 at 06:00 Famotidine (Pepcid Iv) 20 mg DAILY IV Last administered on 09/04/16 09:26; Admin Dose 20 MG; Start 09/03/16 at 09:00 Mometasone Furoate (Asmanex) 1 puff BID INH Last administered on 09/04/16 09: 00; Admin Dose 1 PUFF; Start 09/03/16 at 09:00 Miscellaneous Information 1 ea NOTE XX ; Start 09/03/16 at 01:00 Glucose (Glutose) 15 gm Q15M PRN PO DECREASED GLUCOSE; Start 09/03/16 at 01:00 Glucose (Glutose) 22.5 gm Q15M PRN PO DECREASED GLUCOSE; Start 09/03/16 at 01: 00 Dextrose (D50w Syringe) 25 ml Q15M PRN IV DECREASED GLUCOSE; Start 09/03/16 at 01:00 Dextrose (D50w Syringe) 50 ml Q15M PRN IV DECREASED GLUCOSE; Start 09/03/16 at 01:00 Glucagon (Glucagen) 1 mg Q15M PRN IM DECREASED GLUCOSE; Start 09/03/16 at 01:00 Glucose (Glutose) 15 gm Q15M PRN BUCCAL DECREASED GLUCOSE; Start 09/03/16 at 01 :00 Insulin Aspart (Novolog Insulin Pen) (Adult SC Insulin - Mild Algorithm)... Q4 SC ; Start 09/03/16 at 01:00 Acetaminophen 650 mg [address] ELEVATED TEMPERATURE Last administered on 09/04/16 01:27; Admin Dose 650 MG; Start 09/04/16 at 01:00 Sodium Chloride 1,000 ml @ 125 mls/hr Q8H IV Last administered on 09/04/16t 09 :00; Admin Dose 125 MLS/HR; Start 09/04/16 at 09:00 Levofloxacin/ Dextrose (Levaquin 250 Mg/ D5W 50 ml (Pmx)) 50 ml @ 50 mls/hr Q48H IVPB ; Start 09/06/16 at 05:00 KRISTOPHER ENGLE Sep 04, 2016 17:34
[2016-09-04] MEDS ORDERED: CHLOROTHIAZIDE 500 MG INJ IV ONE (18:00)
--- NOTE | 2016-09-04 18:31 | RADRPT ---
Vent Rate: 100 bpm RR Interval: 0 msec UT Interval: 146 msec QRS Duration: 74 msec QT Interval: 352 msec QTC Interval: 454 msec P-R-T Sloan: 41 - 17 - 119 degrees Sinus Tachycardia Possible Inferior infarct , age undetermined Cannot rule out Anterior infarct , age undetermined ST amp; T wave abnormality, consider lateral ischemia Abnormal ECG Electronically Signed By: Mohan Payne [id number]
[2016-09-04] MEDS ORDERED: DEXTROSE 5% IVPB ONE (19:30)
[2016-09-04] MEDS ORDERED: CHLOROTHIAZIDE IVPB ONE (19:30)
[2016-09-04] MEDS ORDERED: DEXTROSE 5%-0.45% NACL 1,000 ML IV SCH (21:30)
[2016-09-05] VITALS (87 sets, daily range): BP systolic 35–143; BP diastolic 18–116; PULSE 85–161; RESP 12–39
[2016-09-05] MEDS: Insulin NOVOLOG SS MILD Algorithm (NPO/TPN/ENTERAL FEEDS) SC SCH ×5 (01:00→17:00)
[2016-09-05] MEDS ORDERED: FUROSEMIDE 40 MG INJ IV ONE (04:30)
[2016-09-05] MEDS ORDERED: DEXTROSE 5% 1,000 ML IV SCH (04:30)
[2016-09-05] MEDS: LEVOTHYROXINE 100 MCG VIAL IV SCH (05:24)
[2016-09-05] MEDS ORDERED: SOD CHLORIDE 0.9% 250 ML IV ONE (05:30)
[2016-09-05 06:35] LABS: ADD SCAN DIFF NO
[2016-09-05 06:43] LABS: ABNORMAL IP MESSAGE 1; HEMATOCRIT 46.9 % (37.0-47.0); MEAN CORPUSCULAR HEMOGLOBIN 26.6 pg (29.0-33.0); MEAN CORPUSCULAR HGB CONC 29.9 g/dl (32.0-37.0); MEAN PLATELET VOLUME 9.7 fl (7.4-10.4); PLATELET COUNT 314 10^3/UL (140-415); RED BLOOD COUNT 5.27 10^6/ul (4.20-5.40); RED CELL DISTRIBUTION WIDTH 19.9 % (11.5-14.5); WHITE BLOOD COUNT 9.5 10^3/ul (4.8-10.8)
[2016-09-05 06:46] LABS: POTASSIUM 5.1 mmol/L (3.5-5.1)
[2016-09-05 06:49] LABS: CALCIUM 8.5 mg/dl (8.4-10.2)
[2016-09-05 06:57] LABS: CREATININE 4.56 mg/dl (0.44-1.00)
--- NOTE | 2016-09-05 07:32 | RADRPT ---
PROCEDURE: XR Chest. CLINICAL INDICATION: CHF TECHNIQUE: An AP view of the chest was obtained. COMPARISON: Chest x-ray dated 09/04/2016 FINDINGS: The tip of the enteric tube extends below the left diaphragm. There is prominence of the interstitial and central pulmonary vascular markings. There is obscurati on of the left diaphragm. No pneumothorax is seen. The cardiomediastinal silhouette is mildly enla rged . Calcifications are seen within the aortic arch. The osseous structures demonstrate senescent changes. IMPRESSION: 1. Findings suggestive of interstitial edema. Lung aeration is mildly improved when compared to the prior examination. 2. Left basilar atelectasis versus pneumonia, not significantly changed. 3. Mild cardiomegaly and aortic atherosclerosis. 4. The tip of the enteric tube extends below the left diaphragm. RPTAT: HH .Diana Castorena MD, Date Time Electronically viewed and signed by .Diana Castorena MD, on 09/05/2016 07:31 .G/
[2016-09-05] MEDS: DEXTROSE 50% 50 ML SYRINGE IV PRN ×3 (08:13→18:31)
[2016-09-05] MEDS: ALBUTEROL/IPRATROPIUM (NEB) 3 ML AMP HHN SCH (08:21)
[2016-09-05 08:28] LABS: HAAIG REFLEX REFLEX FILED
--- NOTE | 2016-09-05 08:56 | CONS ---
Date/Time of Note Date/Time of Note DATE: 09/05/16 TIME: 08:51 Assessment/Plan Assessment/Plan Chief Complaint/Hosp Course Pre-operative evaluation: The pt is to undergo at least moderate risk surgery as per review of surgical evaluation notes, the plan is for extensive surgery. She is currently in acute decompensated heart failure which puts her at high risk for surgery. If the pt's SBO is thought to be a medical urgency/emergency, then she should have the surgery as planned . If she is to proceed with surgery , we can manage her CHF post-op but she will likely have a more prolonged course of intubation. If the surgery can be safely delayed, she will need HD as she is unresponsive to diuretics. Acute diastolic heart failure: Preserved EF. Decompensated heart failure secondary to acute renal failure. Needs HD as unresponsive to diuretics. Acute renal failure: thought to be from ATN. Oliguric. SBO/ventral hernia: plan for surgery as above DM -please refer to above discussion regarding timing of surgery (my understanding is that the pt is to have HD this am and surgery in the afternoon) -ABG -?intubation based on ABG or if respiratory status decompensates -HD per nephrology -if pt needs BP support, can use levophed. Would avoid further fluid boluses unless pt is already intubated Problems: Consultation Date/Type/Reason Admit Date/Time Sep 02, 2016 at 19:58 Initial Consult Date 09/04/16 Type of Consultation: Cardiology Referring Provider: ARIC VICTORIA 24 HR Interval Summary Free Text/Dictation Overnight made minimal urine despite lasix 120mg and diuril. More tachypneic, lethargic, hypotensive, and tachycardic so transferred to the ICU. Currently on a NRB mask. Exam/Review of Systems Vital Signs Vitals Vital Signs Date Time Temp Pulse Resp B/P Pulse Ox O2 Delivery O2 Flow Rate FiO2 09/05/16 08:27 118 09/05/16 08:22 89 3.0 09/05/16 08:21 30 Nasal Cannula 09/05/16 08:03 99.4 99/51 Intake and Output 09/04/16 09/04/16 09/05/16 15:00 23:00 07:00 Intake Total 500 ml 50 ml 1045 ml Output Total 200 ml 1360 ml Balance 500 ml -150 ml -315 ml Exam Constitutional: alert, distress (respiratory ), No oriented Head: atraumatic, normocephalic Neck: jvd (12cm) Respiratory: crackles/rales, diminished breath sounds, No clear to auscultation Cardiovascular: edema (1+) Gastrointestinal: soft, No non-tender Neurological: nl mental status, nl speech Results Result Diagram: 09/05/16 0600 09/05/16 0600 Results 24 hrs Laboratory Tests Test 09/04/16 12:08 09/04/16 15:53 09/04/16 17:22 09/04/16 20:58 Bedside Glucose 123 119 81 Sodium Level 148 H Potassium Level 4.8 Chloride Level 105 Carbon Dioxide Level 24 Anion Gap 24 H Blood Urea Nitrogen 82 H Creatinine 3.66 #H Glucose Level 147 Calcium Level 8.9 Test 09/05/16 00:51 09/05/16 04:56 09/05/16 06:00 09/05/16 08:01 Bedside Glucose 117 89 White Blood Count 9.5 # Red Blood Count 5.27 Hemoglobin 14.0 Hematocrit 46.9 Mean Corpuscular Volume 89.0 Mean Corpuscular Hemoglobin 26.6 L Mean Corpuscular Hemoglobin Concent 29.9 L Red Cell Distribution Width 19.9 H Platelet Count 314 Mean Platelet Volume 9.7 Neutrophils % Eosinophils % Neutrophils # Eosinophils # Sodium Level 146 H Potassium Level 5.1 Chloride Level 106 Carbon Dioxide Level 20 L Anion Gap 25 H Blood Urea Nitrogen 96 H Creatinine 4.56 H Glucose Level 89 # Calcium Level 8.5 Complement C3 Pending Complement C4 Pending Hepatitis B Surface Antigen Pending Hepatitis B Core Total Antibody Pending Hepatitis C Antibody Pending Test 09/05/16 08:09 09/05/16 08:24 Bedside Glucose 54 L 96 Medications Medications Current Medications Morphine Sulfate (morphine) 2 mg Q2H PRN IV PAIN Last administered on 16:36; Admin Dose 2 MG; Start 09/02/16 at 23:30 Metoclopramide HCl (Reglan) 10 mg Q6H PRN IV NAUSEA AND/OR VOMITING; Start 03/12 at 00:30 Salmeterol Xinafoate/ Fluticasone (Advair 250/50 Diskus) 1 inh BID INH Last administered on 09/04/16 21:24; Admin Dose 1 INH; Start 09/03/16 at 09:00 Levothyroxine Sodium (Synthroid Iv) 50 mcg DAILY@06 IV Last administered on 05:24; Admin Dose 50 MCG; Start 09/03/16 at 06:00 Famotidine (Pepcid Iv) 20 mg DAILY IV Last administered on 09/04/16 09:26; Admin Dose 20 MG; Start 09/03/16 at 09:00 Mometasone Furoate (Asmanex) 1 puff BID INH Last administered on 09/04/16 21: 24; Admin Dose 1 PUFF; Start 09/03/16 at 09:00 Miscellaneous Information 1 ea NOTE XX ; Start 09/03/16 at 01:00 Glucose (Glutose) 15 gm Q15M PRN PO DECREASED GLUCOSE; Start 09/03/16 at 01:00 Glucose (Glutose) 22.5 gm Q15M PRN PO DECREASED GLUCOSE; Start 09/03/16 at 01: 00 Dextrose (D50w Syringe) 25 ml Q15M PRN IV DECREASED GLUCOSE Last administered on 09/05/16 08:13; Admin Dose 25 ML; Start 09/03/16 at 01:00 Dextrose (D50w Syringe) 50 ml Q15M PRN IV DECREASED GLUCOSE; Start 09/03/16 at 01:00 Glucagon (Glucagen) 1 mg Q15M PRN IM DECREASED GLUCOSE; Start 09/03/16 at 01:00 Glucose (Glutose) 15 gm Q15M PRN BUCCAL DECREASED GLUCOSE; Start 09/03/16 at 01 :00 Insulin Aspart (Novolog Insulin Pen) (Adult SC Insulin - Mild Algorithm)... Q4 SC ; Start 09/03/16 at 01:00 Acetaminophen 650 mg 650 mg Q6H PRN [place] ELEVATED TEMPERATURE Last administered on 09/04/16 21:24; Admin Dose 650 MG; Start 09/04/16 at 01:00 Levofloxacin/ Dextrose 50 ml @ 50 mls/hr Q48H IVPB ; Start 09/06/16 at 05:00 Dextrose (D5W) 1,000 ml @ 40 mls/hr Q24H IV Last administered on 09/05/16 04: 50; Admin Dose 40 MLS/HR; Start 09/05/16 at 04:30 KRISTOPHER ENGLE Sep 05, 2016 08:56
[2016-09-05 08:59] LABS: INR 1.37; PROTIME 16.9 Sec (12.2-14.2); PT RATIO 1.3
[2016-09-05] MEDS ORDERED: ETOMIDATE 20 MG INJ ONE (09:00)
[2016-09-05] MEDS ORDERED: MIDAZOLAM 1 MG/ML 2 ML INJ ONE (09:00)
[2016-09-05] MEDS: MOMETASONE 0.24 GM INHALER INH SCH (09:00)
[2016-09-05] MEDS: SALMETEROL/FLUTICASONE 250/50 INHA INH SCH (09:00)
--- NOTE | 2016-09-05 09:33 | PN ---
DATE: 09/05/2016 SUBJECTIVE: The patient has had a clinical decline in the last 24 hours, as she has remained anuric despite aggressive diuresing. The patient also was noted to have copious amount of NG output, was noted to be hypertensive overnight and febrile. I spoke with the patient's daughter and niece at bedside informing them that their mother is current ly in significant renal failure requiring dialysis. The risks and benefits of dialysis was explaine d with the family at bedside, they verbalized understanding and they agree with dialysis. There has been no reports of any rash. No hemoptysis or hematochezia. OBJECTIVE: VITAL SIGNS: Blood pressure 99/56, respirations 20, pulse 114, temperature 98.8. HEENT: Head is normocephalic. Pupils are reactive, has NG tube in place. NECK: Supple. HEART: Tachycardic. LUNGS: Show diminished breath sounds at the base. Positive rhonchi and crackles. ABDOMEN: Soft, mild tenderness on palpation. EXTREMITIES: Negative for clubbing, cyanosis, no edema. DERMATOLOGIC: No rashes. MUSCULOSKELETAL: No joint effusions. NEUROLOGIC: Limited exam, but no changes. LABORATORY DATA: Shows sodium 146, respiration 5.1, chloride 106, BUN 96, creatinine 4.56. White c ount 9.5, hemoglobin 14.0, hematocrit 46.9, platelet count is 314. IMAGING: The patient's chest x-ray showed mild atelectasis lung base, pulmonary edema and NG tube i n place. The patient's KUB shows dilated loops of small bowel throughout the abdomen consistent wit h small-bowel obstruction. ASSESSMENT AND PLAN: This is a 66-year-old female who presents with: 1. Anuric acute kidney injury with a previous baseline creatinine of 0.8 mg/dL. Etiology of acute kidney injury secondary to acute tubular necrosis due to decreased effective arterial volume, with m ultifactorial causes including possible initial prerenal etiology and intraabdominal process, small- bowel obstruction, questionable intra-abdominal hypertension. The patient had a significant decline in renal function and BUN and creatinine have now increased to 96 and 4.56 mg/dL. The possibility of an acute glomerulonephritis, vasculitis or interstitial nephritis is less likely given the patien t's initial bland sediment. However, a full serological workup will also be done. Plan at this poi nt is to initiate the patient on hemodialysis for solute clearance. Will have a Taj catheter pl aced by interventional radiology. Once the catheter is placed, the patient will be dialyzed today. Please note I spoke with the patient's family, as discussed above and they agree with hemodialysis. I also discussed the case with general surgeon, Dr. Thomas, who would prefer dialysis prior to helio juan. Would otherwise continue supportive care, renally dose all meds, avoid nephrotoxins. 2. Hypernatremia. The patient has free water deficit of approximately 2 liters. We will continue the patient on D5W and monitor sodium levels closely. 3. Anion gap metabolic acidosis with possible concomitant metabolic alkalosis. Plan at this point is to continue to monitor bicarbonate levels. Will consider checking ABG. 4. Mild hypokalemia. Plan is for hemodialysis today on a 2K bath once the patient has access. 5. Acute heart failure. Etiology is likely secondary to cardiorenal syndrome type 3. The patient' s chest x-ray shows pulmonary edema. The patient was given aggressive diuretics yesterday without c linical response. Plan is for dialysis today; however, given the patient's hemodynamic variability unclear if ultrafiltration will be available. 6. Hypotension. Etiology is likely secondary to third spacing from small-bowel obstruction, questi onable sepsis. The patient is currently on IV antibiotics. We will continue. The patient has been given IV fluids; however, minimized at this point, as patient is volume overloaded and developed pul monary edema. Will monitor closely. 7. Mineral bone disorder, monitor calcium and phosphorus levels. Anticipate dialysis today. 8. Anemia. Continue to monitor hemoglobin and hematocrit levels. 9. Small-bowel obstruction secondary to ventral hernia. The patient is scheduled for surgery later this afternoon. 10. Hypothyroidism. Continue Synthroid. 11. History of dementia with acute encephalopathy secondary to underlying uremia. We will continue to monitor. Please note, I discussed the case in detail with the patient's family at bedside and with Dr. Thomas . Please note I spent over 40 minutes of critical care time with this patient. Dictated By: TALA HAMMOND/NTS Conf#: [id number] DID#: [id number]
[2016-09-05] MEDS ORDERED: NORepinephrine 8MG/250 ML (PMX 250 ML ONE ×2 (09:34→23:07)
[2016-09-05] MEDS ORDERED: PHENYLephrine 20MG IN 250 ML 250 ML ONE (09:51)
[2016-09-05 10:02] LABS: BASOPHIL # 0.1 10^3/ul (0.0-0.1); LYMPHOCYTES # 2.4 10^3/ul (0.8-2.9); MONOCYTE # 1.7 10^3/ul (0.3-0.9); MYELOCYTES # 0.1; POLYCHROMASIA RARE
[2016-09-05] MEDS ORDERED: DOPamine-D5W 1.6 MG/ML 250 ML ONE (10:07)
[2016-09-05 10:18] LABS: COMPLEMENT C3 126 mg/dl (88-165); COMPLEMENT C4 37 mg/dl (14-44)
[2016-09-05] MEDS ORDERED: DOPamine 1,600 MG in DEXTROSE 5% 210 ML IV SCH (10:30)
[2016-09-05] MEDS ORDERED: PHENYLephrine 160 MG in DEXTROSE 5% 484 ML IV SCH (10:30)
[2016-09-05] MEDS ORDERED: SOD CHLORIDE 0.9% 1,000 ML IV ONE ×2 (10:30→15:30)
[2016-09-05] MEDS ORDERED: NORepinephrine 8MG/250 ML (PMX 250 ML IV SCH (11:00)
[2016-09-05 11:02] LABS: HEPATITIS B CORE ANTIBODY NEGATIVE (NEGATIVE)
--- NOTE | 2016-09-05 11:23 | CONS ---
Date/Time of Note Date/Time of Note DATE: 09/05/16 TIME: 11:16 Assessment/Plan Assessment/Plan Additional Assessment/Plan Chest x-ray was reviewed from today after intubation which is showing endotracheal tube to be just at the leni the endotracheal tube has since been pulled out by 2 cm. ABG postintubation is pending. Assessment recommendations; next 1. Patient admitted for bowel obstruction due to ventral hernia. 2. Acute renal failure. 3. Acute respiratory failure. 4. Hypotension due to ongoing sepsis, patient on combination Levophed and Cam- Synephrine drips. Continue current supportive care. Give another liter of normal saline fluid bolus. ABG is pending once it is obtained I will reviewed and make further recommendations. Add Zosyn 2.25 g every 8 hours. Continue Levaquin for now. Discontinue hydrocortisone. Prognosis is guarded. Patient also need to be dialyzed. Consultation Date/Type/Reason Admit Date/Time Sep 02, 2016 at 19:58 Date of Consultation: Sep 05, 2016 Type of Consultation: Pulmonary/critical care Reason for Consultation Pulmonary consultations requested for respiratory failure. Next History presenting; patient is a 66-year-old lady who came into the hospital on the ninth of this month with complaints of abdominal pain. The patient was diagnosed with small bowel obstruction due to large ventral hernia. The patient was doing fairly well however early this morning the patient became more obtunded and was transferred to ICU where she was intubated by the ER physician. By the time I saw the patient,she is orally intubated, sedated and history was obtained from medical records. Past medical history; 1. Patient with history of hypothyroidism, 2. Asthma 3. Prior history of abdominal surgery due to perforated gastric ulcer which resulted in ventral hernia. 4. Acute renal failure which has developed during current admission. Medications; were reviewed. Allergies; are to Bactrim. Social history; most of any smoking alcohol or drug abuse. Family history; noncontributory. Occupational history; not available. Review of systems; unable to be obtained. General exam; elderly lady, appears overweight. Orally intubated and sedated. Currently in no distress. Psychological: no complaints Past Surgical History Past Surgical Hx: no surgical history Social History Smoking Status: Never smoker Exam/Review of Systems Vital Signs Vitals Vital Signs Date Time Temp Pulse Resp B/P Pulse Ox O2 Delivery O2 Flow Rate FiO2 4/12/17 09:00 112 09/05/16 08:22 89 3.0 09/05/16 08:21 30 Nasal Cannula 09/05/16 08:03 99.4 99/51 Intake and Output 09/04/16 09/04/16 09/05/16 15:00 23:00 07:00 Intake Total 500 ml 50 ml 1045 ml Output Total 200 ml 1360 ml Balance 500 ml -150 ml -315 ml Exam HEENT exam is; supple neck, no JVD. No lymphadenopathy. Midline trachea. Orally intubated. Pupils are midsize and reactive to light. Patient has fair dentition. No neck masses. Chest exam is; clear to auscultation. S1-S2 audible, no murmurs. Regular rhythm. Abdomen exam is; is protuberant, there is a very large ventral hernia present. There is a well-healed lithotomy scar. Bowel sounds are sluggish. No organomegaly felt. Extremity exam is; no peripheral edema. Pulses 1+ bilaterally. BRANCH OPERATIONS COORDINATOR examination; patient is sedated. Results Result Diagram: 09/05/16 0600 09/05/16 0600 Results 24 hrs Laboratory Tests Test 09/04/16 12:08 09/04/16 15:53 09/04/16 17:22 09/04/16 20:58 Bedside Glucose 123 119 81 Sodium Level 148 H Potassium Level 4.8 Chloride Level 105 Carbon Dioxide Level 24 Anion Gap 24 H Blood Urea Nitrogen 82 H Creatinine 3.66 #H Glucose Level 147 Calcium Level 8.9 Test 09/05/16 00:51 09/05/16 04:56 09/05/16 06:00 09/05/16 07:57 Bedside Glucose 117 89 White Blood Count 9.5 # Red Blood Count 5.27 Hemoglobin 14.0 Hematocrit 46.9 Mean Corpuscular Volume 89.0 Mean Corpuscular Hemoglobin 26.6 L Mean Corpuscular Hemoglobin Concent 29.9 L Red Cell Distribution Width 19.9 H Platelet Count 314 Mean Platelet Volume 9.7 Neutrophils % 11.0 L Band Neutrophils % 28.0 H Lymphocytes % 25.0 Monocytes % 18.0 H Eosinophils % Basophils % 1.0 Metamyelocytes % 16.0 H Myelocytes % 1.0 H Neutrophils # 1.0 L Lymphocytes # 2.4 Monocytes # 1.7 H Eosinophils # Basophils # 0.1 Metamyelocytes # 1.5 Myelocytes # 0.1 Giant Platelets RARE Polychromasia RARE Sodium Level 146 H Potassium Level 5.1 Chloride Level 106 Carbon Dioxide Level 20 L Anion Gap 25 H Blood Urea Nitrogen 96 H Creatinine 4.56 H Glucose Level 89 # Calcium Level 8.5 Prothrombin Time 16.9 H Prothrombin Time Ratio 1.3 INR International Normalized Ratio 1.37 Test 09/05/16 08:01 09/05/16 08:09 09/05/16 08:24 Complement C3 126 Complement C4 37 Hepatitis B Surface Antigen Pending Hepatitis B Core Total Antibody Pending Hepatitis C Antibody Pending Bedside Glucose 54 L 96 Medications Medications Current Medications Morphine Sulfate (morphine) 2 mg Q2H PRN IV PAIN Last administered on 16:36; Admin Dose 2 MG; Start 09/02/16 at 23:30 Metoclopramide HCl (Reglan) 10 mg Q6H PRN IV NAUSEA AND/OR VOMITING; Start 03/12 at 00:30 Salmeterol Xinafoate/ Fluticasone (Advair 250/50 Diskus) 1 inh BID INH Last administered on 09/04/16 21:24; Admin Dose 1 INH; Start 09/03/16 at 09:00 Levothyroxine Sodium (Synthroid Iv) 50 mcg DAILY@06 IV Last administered on 05:24; Admin Dose 50 MCG; Start 09/03/16 at 06:00 Famotidine (Pepcid Iv) 20 mg DAILY IV Last administered on 09/04/16 09:26; Admin Dose 20 MG; Start 09/03/16 at 09:00 Mometasone Furoate (Asmanex) 1 puff BID INH Last administered on 09/04/16 21: 24; Admin Dose 1 PUFF; Start 09/03/16 at 09:00 Miscellaneous Information 1 ea NOTE XX ; Start 09/03/16 at 01:00 Glucose (Glutose) 15 gm Q15M PRN PO DECREASED GLUCOSE; Start 09/03/16 at 01:00 Glucose (Glutose) 22.5 gm Q15M PRN PO DECREASED GLUCOSE; Start 09/03/16 at 01: 00 Dextrose (D50w Syringe) 25 ml Q15M PRN IV DECREASED GLUCOSE Last administered on 09/05/16 08:13; Admin Dose 25 ML; Start 09/03/16 at 01:00 Dextrose (D50w Syringe) 50 ml Q15M PRN IV DECREASED GLUCOSE; Start 09/03/16 at 01:00 Glucagon (Glucagen) 1 mg Q15M PRN IM DECREASED GLUCOSE; Start 09/03/16 at 01:00 Glucose (Glutose) 15 gm Q15M PRN BUCCAL DECREASED GLUCOSE; Start 09/03/16 at 01 :00 Insulin Aspart (Novolog Insulin Pen) (Adult SC Insulin - Mild Algorithm)... Q4 SC ; Start 09/03/16 at 01:00 Acetaminophen 650 mg 650 mg Q6H PRN [place] ELEVATED TEMPERATURE Last administered on 09/04/16 21:24; Admin Dose 650 MG; Start 09/04/16 at 01:00 Levofloxacin/ Dextrose 50 ml @ 50 mls/hr Q48H IVPB ; Start 09/06/16 at 05:00 Dextrose 1,000 ml @ 40 mls/hr Q24H IV Last administered on 09/05/16 04:50; Admin Dose 40 MLS/HR; Start 09/05/16 at 04:30 Phenylephrine HCl 160 mg/Dextrose 500 ml @ 18.75 mls/ hr TITRATE IV ; Start 05/12 at 10:30 Sodium Chloride 1,000 ml @ 1,000 mls/hr Q1H ONCE IV ; Start 09/05/16 at 10:30; Stop 09/05/16 at 11:29 Dopamine HCl 1600 mg/Dextrose 250 ml @ 0 mls/hr TITRATE IV ; Start 09/05/16 at 10:30 Norepinephrine 250 ml @ 1.875 mls/ hr TITRATE IV ; Start 09/05/16 at 11:00 Vasopressin/ Dextrose (Vasostrict/D5W) 60 ml @ 1.2 mls/hr Q12H IV ; Start 09/05 at 11:00 JOHN BURTON Sep 05, 2016 11:23
--- NOTE | 2016-09-05 11:56 | RADRPT ---
PROCEDURE: XR Chest. CLINICAL INDICATION: Check endotracheal tube position. TECHNIQUE: Single frontal view. COMPARISON: 09/05/2016. 0642 hours. FINDINGS: The endotracheal tube is inserted with the tip at the origin of the right mainstem bronchus. This s hould be retracted approximately 1 cm. The nasogastric tube tip is in the stomach. There is mild pu lmonary edema and left basilar atelectasis, worse than seen previously. The heart is enlarged. There is calcification in the aorta consistent with atherosclerosis. There is no pleural effusion. There is no pneumothorax. IMPRESSION: 1. Endotracheal tube should be retracted approximately 1 cm. 2. Worse appearance of the lungs. 3. No other change from 09/05/2016. Call report: A call report of the findings was made to the patient's nurse in intensive care unit o n 09/05/2016 at 1140 hours. RPTAT: QQ .Garrick Corcoran MD, MD Date Time Electronically viewed and signed by .Garrick Corcoran MD, on 09/05/2016 11:56 .R/
[2016-09-05] MEDS ORDERED: HEPARIN 1000 UNITS/ML 10 ML INJ ONE (12:19)
[2016-09-05] MEDS ORDERED: LIDOCAINE 1% (MDV) 20 ML INJ ONE (12:19)
[2016-09-05] MEDS ORDERED: PHENYLephrine 20MG IN 250 ML 250 ML IV SCH (13:00)
[2016-09-05] MEDS ORDERED: DOPamine-D5W 1.6 MG/ML 250 ML IV SCH (13:00)
[2016-09-05] MEDS ORDERED: MIDAZOLAM 1 MG/ML 2 ML INJ IV ONE (13:30)
--- NOTE | 2016-09-05 13:48 | PN ---
Date/Time of Note Date/Time of Note DATE: 09/05/16 TIME: 13:34 Assessment/Plan VTE Prophylaxis VTE Prophylaxis Intervention: SCD's Lines/Catheters IV C[facility]ter Type (from [facility] Peripheral IV Urinary Cath still in place: Yes Assessment/Plan Chief Complaint/Hosp Course Assessment and plan 1. Small bowel obstruction. . SBFT with bowel obstruction. Plan for surgical intervention once medically stable 2. Acute renal failure. Plan for HD per airline pilot. patient noted with no urine output. follow up with nephrology recs 3. History of dementia with psychosis. Patient to be resumed on her Prozac and Zyprexa once able to tolerate oral intake. 4. History of dementia. Continue on Namenda once able to tolerate oral intake. no active issue at this time 5. Essential hypertension. antihypertensives on hold due to hypotension 6. Obesity. Weight reduction advised 7. Diabetes. Continue on insulin regimen 8. History of COPD. Patient resumed on bronchodilators as needed 9. Sepsis. etiology unclear. Will get ID consult. noted with shock. remains on 3 pressors. 10. Respiratory failure. Secondary from renal failure and decompensated heart failure. Spine Specialist following. Patient remains intubated. plan for HD Disposition and plan: in icu. condition critical. plan for HD. cont with vasopressors. ID to follow for septic state. Discussed plan of care with Dr. Carroll Critical Care time: 30 minutes Problems: Subjective 24 Hr Interval Summary Free Text/Dictation intubated at this time. seen on 3 pressors Exam/Review of Systems Vital Signs Vitals Vital Signs Date Time Temp Pulse Resp B/P Pulse Ox O2 Delivery O2 Flow Rate FiO2 09/05/16 12:00 122 09/05/16 08:22 89 3.0 09/05/16 08:21 30 Nasal Cannula 09/05/16 08:03 99.4 99/51 Intake and Output 09/04/16 09/04/16 09/05/16 14:59 22:59 06:59 Intake Total 500 ml 50 ml 1045 ml Output Total 200 ml 1360 ml Balance 500 ml -150 ml -315 ml Exam General: Intubated. Not on sedation. Somnolent Eyes: Equal round Neck: Supple nontender, no JVD Cardiac: Remains regular rate Pulmonary: Diminished at lung base GI: Large ventral hernia seen. Bowel sounds hyper Extremities: Minimal edema bilateral lower extreme Skin: CDI Neurologic: Intubated somnolent Results Result Diagram: 09/05/16 0600 09/05/16 0600 Results 24 hrs Laboratory Tests Test 09/04/16 15:53 09/04/16 17:22 09/04/16 20:58 09/05/16 00:51 Sodium Level 148 H Potassium Level 4.8 Chloride Level 105 Carbon Dioxide Level 24 Anion Gap 24 H Blood Urea Nitrogen 82 H Creatinine 3.66 #H Glucose Level 147 Calcium Level 8.9 Bedside Glucose 119 81 117 Test 09/05/16 04:56 09/05/16 06:00 09/05/16 07:57 09/05/16 08:01 Bedside Glucose 89 White Blood Count 9.5 # Red Blood Count 5.27 Hemoglobin 14.0 Hematocrit 46.9 Mean Corpuscular Volume 89.0 Mean Corpuscular Hemoglobin 26.6 L Mean Corpuscular Hemoglobin Concent 29.9 L Red Cell Distribution Width 19.9 H Platelet Count 314 Mean Platelet Volume 9.7 Neutrophils % 11.0 L Band Neutrophils % 28.0 H Lymphocytes % 25.0 Monocytes % 18.0 H Eosinophils % Basophils % 1.0 Metamyelocytes % 16.0 H Myelocytes % 1.0 H Neutrophils # 1.0 L Lymphocytes # 2.4 Monocytes # 1.7 H Eosinophils # Basophils # 0.1 Metamyelocytes # 1.5 Myelocytes # 0.1 Giant Platelets RARE Polychromasia RARE Sodium Level 146 H Potassium Level 5.1 Chloride Level 106 Carbon Dioxide Level 20 L Anion Gap 25 H Blood Urea Nitrogen 96 H Creatinine 4.56 H Glucose Level 89 # Calcium Level 8.5 Prothrombin Time 16.9 H Prothrombin Time Ratio 1.3 INR International Normalized Ratio 1.37 Complement C3 126 Complement C4 37 Hepatitis B Surface Antigen NEGATIVE Hepatitis B Core Total Antibody NEGATIVE Hepatitis C Antibody NEGATIVE Test 09/05/16 08:09 09/05/16 08:24 09/05/16 11:14 09/05/16 11:50 Bedside Glucose 54 L 96 68 L 111 Test 09/05/16 12:09 Bedside Glucose 105 Medications Medications Current Medications Morphine Sulfate (morphine) 2 mg Q2H PRN IV PAIN Last administered on t 16:36; Admin Dose 2 MG; Start 09/02/16 at 23:30 Metoclopramide HCl (Reglan) 10 mg Q6H PRN IV NAUSEA AND/OR VOMITING; Start 03/12 at 00:30 Salmeterol Xinafoate/ Fluticasone (Advair 250/50 Diskus) 1 inh BID INH Last administered on 09/04/16 21:24; Admin Dose 1 INH; Start 09/03/16 at 09:00 Levothyroxine Sodium (Synthroid Iv) 50 mcg DAILY@06 IV Last administered on 05:24; Admin Dose 50 MCG; Start 09/03/16 at 06:00 Famotidine (Pepcid Iv) 20 mg DAILY IV Last administered on 09/04/16 09:26; Admin Dose 20 MG; Start 09/03/16 at 09:00 Mometasone Furoate (Asmanex) 1 puff BID INH Last administered on 09/04/16 21: 24; Admin Dose 1 PUFF; Start 09/03/16 at 09:00 Miscellaneous Information 1 ea NOTE XX ; Start 09/03/16 at 01:00 Glucose (Glutose) 15 gm Q15M PRN PO DECREASED GLUCOSE; Start 09/03/16 at 01:00 Glucose (Glutose) 22.5 gm Q15M PRN PO DECREASED GLUCOSE; Start 09/03/16 at 01: 00 Dextrose (D50w Syringe) 25 ml Q15M PRN IV DECREASED GLUCOSE Last administered on 09/05/16 11:28; Admin Dose 25 ML; Start 09/03/16 at 01:00 Dextrose (D50w Syringe) 50 ml Q15M PRN IV DECREASED GLUCOSE; Start 09/03/16 at 01:00 Glucagon (Glucagen) 1 mg Q15M PRN IM DECREASED GLUCOSE; Start 09/03/16 at 01:00 Glucose (Glutose) 15 gm Q15M PRN BUCCAL DECREASED GLUCOSE; Start 09/03/16 at 01 :00 Insulin Aspart (Novolog Insulin Pen) (Adult SC Insulin - Mild Algorithm)... Q4 SC ; Start 09/03/16 at 01:00 Acetaminophen 650 mg 650 mg Q6H PRN [place] ELEVATED TEMPERATURE Last administered on 09/04/16 21:24; Admin Dose 650 MG; Start 09/04/16 at 01:00 Levofloxacin/ Dextrose 50 ml @ 50 mls/hr Q48H IVPB ; Start 09/06/16 at 05:00 Dextrose 1,000 ml @ 40 mls/hr Q24H IV Last administered on 09/05/16 04:50; Admin Dose 40 MLS/HR; Start 09/05/16 at 04:30 Phenylephrine HCl 160 mg/Dextrose 500 ml @ 18.75 mls/ hr TITRATE IV Last administered on 09/05/16 11:49; Admin Dose 56.25 MLS/HR; Start 09/05/16 at 10: 30 Dopamine HCl 1600 mg/Dextrose 250 ml @ 0 mls/hr TITRATE IV ; Start 09/05/16 at 10:30 Norepinephrine 250 ml @ 1.875 mls/ hr TITRATE IV Last administered on 09:45; Admin Dose 9.375 MLS/HR; Start 09/05/16 at 11:00 Vasopressin 60 unit/Dextrose 60 ml @ 1.2 mls/hr Q12H IV ; Start 09/05/16 at 11: 00 Piperacillin Sod/ Tazobactam Sod 50 ml @ 100 mls/hr Q8 IVPB ; Start 09/05/16 at 12:00 Dopamine HCl/ Dextrose 250 ml @ 6.45 mls/hr TITRATE IV Last administered on 10:00; Admin Dose 6.45 MLS/HR; Start 09/05/16 at 13:00; Stop 09/05/16 at 19:00 Phenylephrine HCl (Cam-Syneph) 250 ml @ 75 mls/hr TITRATE IV Last administered on 09/05/16 09:45; Admin Dose 75 MLS/HR; Start 09/05/16 at 13:00; Stop 09/05/16 at 19:00 ARIC VICTORIA Sep 05, 2016 13:48
[2016-09-05] MEDS: PIPER-TAZO 2.25 GM (PMX) 50 ML IVPB SCH ×2 (14:12→22:03)
[2016-09-05] MEDS: FAMOTIDINE 20 MG INJ IV SCH (14:12)
--- NOTE | 2016-09-05 14:46 | RADRPT ---
PROCEDURE: ULTRASOUND GUIDED PLACEMENT OF RIGHT INTERNAL JUGULAR VENOUS TEMPORARY DIALYSIS CATHETE R. CLINICAL INDICATION: Renal failure. TECHNIQUE: Informed consent was obtained. The risks including bleeding and infection were explained to the pat vanint's family. The patient's family understood and was willing to proceed. A procedural pause was performed. The patient's name, date of , and procedure to be performed were verified. Limited sonography of the right neck was performed. Noted is a patent right internal jugular vein. The janene tral line was inserted with all elements of maximal sterile barrier technique. All of the following were used: head covering, facial mask, sterile gown, sterile gloves, a large sterile sheet, hand hyg iene, and 2% chlorhexidine for cutaneous antisepsis. The right neck and anterior superior chest wa ll was prepped and draped in the usual sterile fashion. Using local anesthesia, sterile technique, and ultrasound guidance, a 20-gauge needle was advanced i nto the right internal jugular vein in the supraclavicular region. The 0.018 inch floppy tip guidew jim was advanced through the needle into the superior vena cava. A 5-Turkmen sheath was advanced ove r the guidewire. The guidewire was removed and a 0.035 inch guidewire was advanced into the superio r vena cava. Serial dilatation was performed to 12 Turkmen. The temporary dialysis catheter was the n advanced over the guidewire such that the tip was placed in the right atrium. A 16 cm long, 12Fre nch triple-lumen Mahurkar temporary dialysis catheter was used. The 3 ports were each flushed with 1.5 ml of 1:1000 heparin. The catheter was secured to the skin with 2-0 monofilament. The site wa s dressed. The patient tolerated the procedure well. COMPARISON: None. FINDINGS: Ultrasound images were recorded and stored in the patient's medical record. The ultrasound images demonstrate the needle entering the internal jugular vein. Post procedure chest radiograph demonstrates the temporary dialysis catheter in satisfactory positio n in the cavoatrial junction region. There is no pneumothorax. IMPRESSION: 1. Satisfactory insertion of right internal jugular vein triple-lumen temporary dialysis catheter w ith ultrasound guidance. 2. Post procedure chest radiograph demonstrates the temporary dialysis catheter in satisfactory pos ition in the cavoatrial junction region. There is no pneumothorax. RPTAT: QQ .Garrick Corcoran MD, MD Date Time Electronically viewed and signed by .Garrick Corcoran MD, MD on 09/05/2016 14:46 .R/
[2016-09-05] MEDS: VASOPRESSIN 60 UNIT in DEXTROSE 5% 57 ML IV SCH ×2 (15:14→23:21)
--- NOTE | 2016-09-05 16:39 | PN ---
DATE: 09/05/2016 SURGERY PROGRESS NOTE The patient has markedly deteriorated since yesterday. She is now in the intensive care unit and re quired endotracheal intubation. She is in full renal failure and a Taj catheter was recently pl aced in anticipation of hemodialysis. Furthermore, she is hypotensive with 4 pressures maxed out. At this point in time, she is not a surgical candidate. Aggressive medical management has been init iated. I have had a discussion with the daughters and have indicated to them that this is a very gr ave situation as the patient is deteriorating while on medical management and is not a surgical cand idate at this time. Unless the patient starts to respond in some way survival in her current setting is not expected. We will hope that the patient is able to stabilize in some form where she will be able to at least tolerate an anesthetic. Dictated By: GENESIS KENNY/CINDY Conf#: [id number] DID#: [id number]
[2016-09-05 16:41] LABS: ADD SCAN DIFF NO
[2016-09-05 16:42] LABS: BASOPHILS % 0.2 % (0.0-2.0); EOSINOPHILS # 0.1 10^3/ul (0.0-0.5); EOSINOPHILS % 0.9 % (0.0-7.0); HEMATOCRIT 29.8 % (37.0-47.0); LYMPHOCYTES # 0.9 10^3/ul (0.8-2.9); MEAN CORPUSCULAR HEMOGLOBIN 29.9 pg (29.0-33.0); MEAN CORPUSCULAR HGB CONC 33.6 g/dl (32.0-37.0); MEAN CORPUSCULAR VOLUME 89.2 fl (82.0-101.0); MONOCYTE # 0.8 10^3/ul (0.3-0.9); MONOCYTES % 8.5 % (0.0-11.0); NEUTROPHIL # 7.2 10^3/ul (1.6-7.5); NEUTROPHILS % 80.1 % (39.0-77.0); PLATELET COUNT 294 10^3/UL (140-415); RED BLOOD COUNT 3.34 10^6/ul (4.20-5.40)
[2016-09-05 16:59] LABS: MICROALBUMIN 46.4 mg/dL
[2016-09-05 17:15] LABS: ALBUMIN 3.4 g/dl (3.3-4.9)
[2016-09-05 17:18] LABS: ALBUMIN/GLOBULIN RATIO 0.79; TOTAL PROTEIN 7.7 g/dl (6.1-8.1)
[2016-09-05 17:19] LABS: CALCIUM 7.9 mg/dl (8.4-10.2); MAGNESIUM 2.7 mg/dl (1.7-2.5); PHOSPHORUS 6.6 mg/dl (2.5-4.9)
[2016-09-05 17:25] LABS: CREATININE 5.38 mg/dl (0.44-1.00)
--- NOTE | 2016-09-05 17:27 | OPPN ---
Date/Time of Note Date/Time of Note DATE: 09/05/16 TIME: 17:15 Anesthesia Eval and Record Evaluation Age 66 Sex female NPO: 8 hrs pT is intubated with NGT in place Preoperative diagnosis Bowel Obstruction Planned procedure Exploratory Laparotomy Past Medical History Cardio: HTN, Dyslipidemia, CHF Endo: DM, Hypothyroidism Renal: LIA Pulm: Other GI: GERD, Obesity Heme: Anemia Surgery & Anesthesia Issues No known issue Meds Anticoagulation: No Beta Mariah within 24 hr: No Reason Beta Mariah not given: Pt. not on B-Mariah Active Scripts Albuterol/Ipratropium* (Combivent Respimat*) 20-100 Mcg/Inh - 4 Gm Aer.w.adap, 1 PUFF IH QID Y for SHORTNESS OF BREATH, #1 VIAL Prov:SHAYNE BERNAL . 12/25/14 Salmeterol Xinaf/Fluticasone* (Advair*) 250-50 Diskus Inhaler, 1 INH INH BID, # 1 VIAL Prov:SHAYNE BERNAL . 12/25/14 Furosemide* (Lasix*) 10 Mg/Ml Soln, 40 MG PO BID DIURETICS for 30 Days Prov:SHAYNE BERNAL . 12/25/14 Lactobacillus Acidoph/Bulgaricus* (Floranex*) 1 Tab Chew, 1 TAB PO BID for 30 Days Prov:SHAYNE BERNAL . 12/25/14 Ascorbic Acid (Vitamin C) 500 Mg Tab, 500 MG PO DAILY for 30 Days, TAB Prov:GABEJANUARY. 12/25/14 Famotidine* (Pepcid* AC) 20 Mg Tab, 20 MG PO BID for 30 Days Prov:SHAYNE BERNAL . 12/25/14 Ferrous Sulfate* (Ferrous Sulfate*) 325 Mg Tabec, 325 MG PO BID for 30 Days Prov:SHAYNE BERNAL . 12/25/14 Furosemide* (Furosemide*) 20 Mg Tablet, 40 MG PO DAILY for 30 Days, TAB Prov:SHAYNE BERNAL . 12/25/14 Reported Medications Albuterol/Ipratropium* (Combivent Respimat*) 20-100 Mcg/Inh - 4 Gm Aer.w.adap, 1 PUFF INHALATION QID, #1 INHALER 10/07/15 Beclomethasone Dip (Qvar 40) 1 Puff Inha, 1 PUFF INH BID, #1 INHALER 10/07/15 Ascorbic Acid (Vitamin C) 500 Mg Tab, 500 MG PO DAILY, TAB 10/07/15 Pot Chloride/Pot Bicarb/Cit Ac (Potassium Cl 25 Meq Tab Eff) 25 Meq Tablet.eff, 25 MEQ PO 10/07/15 Memantine HCl (Memantine HCl) 5 Mg Tablet, 5 MG PO BID, #60 TAB 10/07/15 Metoprolol Tartrate* (Lopressor*) 25 Mg Tab, 12.5 MG PO BID, #60 TAB 10/07/15 Levothyroxine Sodium* (Levoxyl*) 50 Mcg Tablet, 50 MCG PO AC BREAKFAST, TAB 12/21/14 Hydrocortisone* Topical (Hydrocortisone* Topical) 1%-28.35 Gm Cream..g., 1 APPLIC TOP BID, TUB 10/16/14 Fish Oil* (Fish Oil*) 1,000 Mg Cap, 1000 MG PO DAILY, CAP 10/16/14 Fluoxetine Hcl* (Prozac*) 10 Mg Capsule, 10 MG PO DAILY, CAP 10/16/14 Metformin Hcl* (Metformin Hcl*) 500 Mg Tablet, 500 MG PO BID, TAB 10/16/14 Amlodipine Besylate* (Amlodipine Besylate*) 10 Mg Tablet, 10 MG PO DAILY, TAB 10/16/14 Docusate Sodium* (Colace*) 250 Mg Capsule, 250 MG PO DAILY, CAP 10/16/14 Sucralfate* (Carafate*) 1 Gm Tab, 1 GM PO QID, TAB 10/16/14 Olanzapine* (Zyprexa*) 2.5 Mg Tablet, 7.5 MG PO QHS, TAB 10/16/14 Pravastatin Sodium* (Pravastatin Sodium*) 10 Mg Tablet, 10 MG PO HS, TAB 10/16/14 Pioglitazone Hcl* (Pioglitazone Hcl*) 15 Mg Tablet, 15 MG PO DAILY, TAB 10/16/14 Losartan Potassium* (Cozaar*) 100 Mg Tablet, 100 MG PO DAILY, TAB 10/16/14 Isosorbide Mononitrate* (Isosorbide Mononitrate*) 30 Mg Tab.er.24h, 30 MG PO BID , TAB 10/16/14 Current Medications Morphine Sulfate (morphine) 2 mg Q2H PRN IV PAIN Last administered on 16:36; Admin Dose 2 MG; Start 09/02/16 at 23:30 Metoclopramide HCl (Reglan) 10 mg Q6H PRN IV NAUSEA AND/OR VOMITING; Start 03/12 at 00:30 Salmeterol Xinafoate/ Fluticasone (Advair 250/50 Diskus) 1 inh BID INH Last administered on 09/04/16 21:24; Admin Dose 1 INH; Start 09/03/16 at 09:00 Levothyroxine Sodium (Synthroid Iv) 50 mcg DAILY@06 IV Last administered on 05:24; Admin Dose 50 MCG; Start 09/03/16 at 06:00 Famotidine (Pepcid Iv) 20 mg DAILY IV Last administered on 09/05/16 14:12; Admin Dose 20 MG; Start 09/03/16 at 09:00 Mometasone Furoate (Asmanex) 1 puff BID INH Last administered on 09/04/16 21: 24; Admin Dose 1 PUFF; Start 09/03/16 at 09:00 Miscellaneous Information 1 ea NOTE XX ; Start 09/03/16 at 01:00 Glucose (Glutose) 15 gm Q15M PRN PO DECREASED GLUCOSE; Start 09/03/16 at 01:00 Glucose (Glutose) 22.5 gm Q15M PRN PO DECREASED GLUCOSE; Start 09/03/16 at 01: 00 Dextrose (D50w Syringe) 25 ml Q15M PRN IV DECREASED GLUCOSE Last administered on 09/05/16 11:28; Admin Dose 25 ML; Start 09/03/16 at 01:00 Dextrose (D50w Syringe) 50 ml Q15M PRN IV DECREASED GLUCOSE; Start 09/03/16 at 01:00 Glucagon (Glucagen) 1 mg Q15M PRN IM DECREASED GLUCOSE; Start 09/03/16 at 01:00 Glucose (Glutose) 15 gm Q15M PRN BUCCAL DECREASED GLUCOSE; Start 09/03/16 at 01 :00 Insulin Aspart (Novolog Insulin Pen) (Adult SC Insulin - Mild Algorithm)... Q4 SC ; Start 09/03/16 at 01:00 Acetaminophen 650 mg 650 mg Q6H PRN CA ELEVATED TEMPERATURE Last administered on 09/04/16 21:24; Admin Dose 650 MG; Start 09/04/16 at 01:00 Levofloxacin/ Dextrose 50 ml @ 50 mls/hr Q48H IVPB ; Start 09/06/16 at 05:00 Phenylephrine HCl 160 mg/Dextrose 500 ml @ 18.75 mls/ hr TITRATE IV Last administered on 09/05/16 11:49; Admin Dose 56.25 MLS/HR; Start 09/05/16 at 10: 30 Dopamine HCl 1600 mg/Dextrose 250 ml @ 0 mls/hr TITRATE IV Last administered on 09/05/16 14:45; Admin Dose 16.12 MLS/HR; Start 09/05/16 at 10:30 Vasopressin 60 unit/Dextrose 60 ml @ 1.2 mls/hr Q12H IV Last administered on 15:14; Admin Dose 1.2 MLS/HR; Start 09/05/16 at 11:00 Piperacillin Sod/ Tazobactam Sod 50 ml @ 100 mls/hr Q8 IVPB Last administered on 09/05/16 14:12; Admin Dose 100 MLS/HR; Start 09/05/16 at 12:00 Dopamine HCl/ Dextrose 250 ml @ 6.45 mls/hr TITRATE IV Last administered on 10:00; Admin Dose 6.45 MLS/HR; Start 09/05/16 at 13:00; Stop 09/05/16 at 19:00 Phenylephrine HCl (Cam-Syneph) 250 ml @ 75 mls/hr TITRATE IV Last administered on 09/05/16 09:45; Admin Dose 75 MLS/HR; Start 09/05/16 at 13:00; Stop 09/05/16 at 19:00 Albuterol 4 puff 4 puff QID INH ; Start 09/05/16 at 17:00 Norepinephrine/ Dextrose (Levophed/D5W) 250 ml @ 0.46 mls/hr TITRATE IV ; Start 09/05/16 at 16:00 Allergies Coded Allergies: sulfamethoxazole (Verified Allergy, Unknown, rash, 10/05/15) trimethoprim (Verified Allergy, Unknown, rash, 10/05/15) Labs/Studies Reviewed by anesthesiologist Result Diagram: 09/05/16 1615 09/05/16 0600 Laboratory Tests 09/05/16 06:00 09/05/16 16:15 Test: N/A Studies: 2D Echo Pre-procedure Exam Last vitals Vital Signs Date Time Temp Pulse Resp B/P Pulse Ox O2 Delivery O2 Flow Rate FiO2 09/05/16 16:00 119 09/05/16 13:35 22 95 100 09/05/16 08:22 3.0 09/05/16 08:21 Nasal Cannula 09/05/16 08:03 99.4 99/51 Airway: Adequate mouth opening Mallampati Score: Mallampati II Teeth: Normal Lung: Abnormal Heart: Abnormal ASA Physical Status ASA physical status: 4, E Planned Anesthetic General/MAC: ETT, NG/OG Tube, A Line, CVP Planned Pain Management Parenteral pain med Pre-operative Attestations Prior to commencing anesthesia and surgery, the patient was re-evaluated, there was verification of: *The patient's identity *The results of appropriate recent lab work and preoperative vital signs *The above evaluation not changing prior to induction *Anesthetic plan, risk benefits, alternative and complications discussed with patient/family; questions answered; Patient is very unstable at this point and not safe to go under anesthesia/ surgery, She is on maxed out multiple drips(dopamine, Levophed, Neosynephrine) and the primary team will attempt to take her under HD prior to surgery. She needs to be optimized prior to surgery. She is hemodynamically unstable. I discussed the case with Dr Thomas and he is in agreement to delay the surgery. The family members were explained the possible risks at this point and their questions were answered. GENA OWEN MD Sep 05, 2016 17:25
[2016-09-05] MEDS ORDERED: NA BICARBONATE 8.4% 50 ML SYG IV ONE (17:30)
[2016-09-05] MEDS: IPRATROPIUM (HFA) 12.9 GM INHALER INH SCH ×2 (17:32→21:28)
[2016-09-05] MEDS: ALBUTEROL 18 GM INHALER INH SCH ×2 (17:32→21:28)
[2016-09-05 18:11] LABS: ADD SCAN DIFF NO
--- NOTE | 2016-09-05 18:12 | OPR ---
Date/Time of Note Date/Time of Note DATE: 09/05/16 TIME: 18:10 Operative Report Free Text/Dictation Pre-Procedure Diagnosis: shock Post-Procedure Diagnosis:same Indication: hemodynamic instability, multiple pressors Type of Procedure: Central Venous Catheter Placement Attending Physician:Sylvain Toussaint Consent: Detailed explanation of the procedure, treatment options, risks including but not limited to infection and bleeding, and benefits were explained to the family. A written informed consent was obtained. Technique: A time out was preformed identifying the correct procedure, the correct location with the nursing staff. The right groin was prepped with 2% chlorhexidine and draped with a full length sterile sheet in the usual fashion. 1% lidocaine was administered subcutaneously for local anesthesia. The right femoral vein was accessed with an 18 gauge thin wall needle. A triple lumen was inserted via the seldinger technique. Blood was withdrawn from all lumens and flushed with normal saline. The catheter was sutured in place and a sterile dressing was applied over the site prior to removal of drapes. The patient tolerated the procedure well and there were no complications. EBL: <5 mL Complication: None KRISTOPHER TOUSSAINT Sep 05, 2016 18:12
[2016-09-05 18:16] LABS: ABNORMAL IP MESSAGE 1; HEMATOCRIT 45.7 % (37.0-47.0); MEAN CORPUSCULAR HEMOGLOBIN 27.4 pg (29.0-33.0); MEAN CORPUSCULAR HGB CONC 30.6 g/dl (32.0-37.0); MEAN CORPUSCULAR VOLUME 89.4 fl (82.0-101.0); MEAN PLATELET VOLUME 10.2 fl (7.4-10.4); PLATELET COUNT 271 10^3/UL (140-415); RED BLOOD COUNT 5.11 10^6/ul (4.20-5.40); RED CELL DISTRIBUTION WIDTH 19.5 % (11.5-14.5)
--- NOTE | 2016-09-05 18:16 | OPR ---
Date/Time of Note Date/Time of Note DATE: 09/05/16 TIME: 18:13 Operative Report Free Text/Dictation Pre-Procedure Diagnosis: shock Post-Procedure Diagnosis:shock Indication:accurate BP monitoring Type of Procedure: Arterial Catheter Placement Attending Physician:Martin Toussaint Assisting Physician: Consent: Detailed explanation of the procedure, treatment options, risks including but not limited to infection and bleeding, and benefits were explained to the family. A written informed consent was obtained. Technique: A time out was preformed identifying the correct procedure, the correct location with the nursing staff. The right groin was prepped with 2% chlorhexidine and draped with a sterile sheet in the usual fashion. 1% lidocaine was administered subcutaneously for local anesthesia. The right femoral artery was cannulated with a 18 gauge catheter. The catheter was sutured in place and a sterile dressing was applied over the site prior to removal of drapes. The patient tolerated the procedure well and there were no complications. EBL:<5 mL Complication: None KRISTOPHER TOUSSAINT Sep 05, 2016 18:16
[2016-09-05 18:26] LABS: Arterial Base Excess -18.9 mmol/L (-3.0-3); Arterial COHb 0.3 % (0.0-3.0); Arterial Fraction of Oxyhgb 95.8 % (93.0-99.0); Arterial HCO3 7.5 mmol/L (22.0-26.0); Arterial MetHb 0.3 % (0.0-1.5); Arterial Total Hemglobin 15.2 g/dl (12.0-18.0); MODE VENT - AC
[2016-09-05] MEDS: morphine 2 MG INJ IV PRN (18:44)
--- NOTE | 2016-09-05 19:50 | RADRPT ---
PROCEDURE: Ultrasound guidance for placement of needle in right internal jugular vein. CLINICAL INDICATION: Venous access. TECHNIQUE: Prior to the procedure, informed consent was obtained. Risks including bleeding, infection, and pneu mothorax were explained to the the patient's family. The patient's family understood and was willin g to proceed. A procedural pause was performed. The patient's name, date of , and procedure to be performed were verified. The central line was inserted with all elements of maximal sterile barri er technique. All of the following were used: head covering, facial mask, sterile gown, sterile glov es, a large sterile sheet, hand hygiene, and 2% chlorhexidine for cutaneous antisepsis. The right neck and anterior/superior chest wall was prepped and draped in usual sterile fashion. Limited sonography of the right neck was then performed. Noted is a patent right internal jugular ve in. Ultrasound images were recorded and stored in the patient's medical record. Following the local injection of Xylocaine, the right internal jugular vein was punctured under sono graphic guidance with a 20-gauge needle through which a 0.018 inch floppy tip guidewire was advanced into the superior vena cava. The patient tolerated the procedure well. The remainder of the proce dure was performed and dictated under separate cover. COMPARISON: None. FINDINGS: The ultrasound images demonstrate a patent right internal jugular vein. The subsequent images demon strate the needle entering the right internal jugular vein. IMPRESSION: 1. Ultrasound guidance for a needle placement in right internal jugular vein. RPTAT: QQ .Garrick Corcoran MD, MD Date Time Electronically viewed and signed by .Garrick Corcoran MD, on 09/05/2016 17:35 .R/
[2016-09-05] MEDS: NORepinephrine 32 MG in DEXTROSE 5% 218 ML IV SCH ×2 (20:27→23:35)
[2016-09-05 20:55] LABS: AADO2 Arterial 587.9 mmHg (7.0-24.0); Arterial Base Excess -19.9 mmol/L (-3.0-3); Arterial COHb 0.1 % (0.0-3.0); Arterial Fraction of Oxyhgb 95.2 % (93.0-99.0); Arterial HCO3 8.5 mmol/L (22.0-26.0); Arterial MetHb 0.3 % (0.0-1.5); Arterial Total Hemglobin 14.5 g/dl (12.0-18.0); Blood Gas Mean Airway Pressure 13; MODE VENT - AC
[2016-09-05] MEDS ORDERED: NA BICARBONATE 8.4% 50 ML SYG IV STA (21:13)
[2016-09-05 21:30] LABS: LYMPHOCYTES # 2.4 10^3/ul (0.8-2.9); MONOCYTE # 2.8 10^3/ul (0.3-0.9)
[2016-09-05] MEDS ORDERED: SODIUM BICARBONATE (IV ADD) 100 MEQ in DEXTROSE 5%-0.45% NACL 900 ML IV SCH (21:30)
[2016-09-05 21:34] LABS: PLATELET ESTIMATE PLT APPEAR ADEQUATE
[2016-09-05 21:38] LABS: ANISOCYTOSIS OCCASIONAL; TOTAL CELLS COUNTED % 100
[2016-09-05] MEDS ORDERED: SOD CHLORIDE 0.9% 500 ML IV ONE (23:00)
[2016-09-05 23:49] LABS: ADD SCAN DIFF NO
[2016-09-06] VITALS (11 sets, daily range): BP systolic 43–75; BP diastolic 15–43; PULSE 0–108; RESP 16–31
[2016-09-06 00:07] LABS: ALBUMIN 2.2 g/dl (3.3-4.9); ALBUMIN/GLOBULIN RATIO 0.78; BILIRUBIN,DIRECT 0.2 mg/dl (0.00-0.20); BILIRUBIN,TOTAL 0.2 mg/dl (0.2-1.3); MAGNESIUM 2.8 mg/dl (1.7-2.5)
[2016-09-06 00:25] LABS: ABNORMAL IP MESSAGE 1; HEMATOCRIT 32.4 % (37.0-47.0); HEMOGLOBIN 9.5 g/dl (12.0-16.0); MEAN CORPUSCULAR HEMOGLOBIN 27.9 pg (29.0-33.0); MEAN CORPUSCULAR HGB CONC 29.3 g/dl (32.0-37.0); MEAN PLATELET VOLUME 10.5 fl (7.4-10.4); PLATELET COUNT 106 10^3/UL (140-415); RED BLOOD COUNT 3.41 10^6/ul (4.20-5.40); RED CELL DISTRIBUTION WIDTH 19.9 % (11.5-14.5); WHITE BLOOD COUNT 24.3 10^3/ul (4.8-10.8)
[2016-09-06] MEDS ORDERED: ARTIFICIAL TEARS 15 ML OPH BOTH EYES PRN (00:30)
[2016-09-06 00:35] LABS: CREATININE 4.11 mg/dl (0.44-1.00)
[2016-09-06 00:41] LABS: POTASSIUM 6.7 mmol/L (3.5-5.1)
[2016-09-06 00:42] LABS: CALCIUM 5.8 mg/dl (8.4-10.2)
[2016-09-06] MEDS ORDERED: CALCIUM GLUCONATE 10% 2 GM in SOD CHLORIDE 0.9% 100 ML IVPB ONE (01:00)
[2016-09-06] MEDS ORDERED: NA POLYST SULFON 15 GM/60 ML BTL PO ONE (01:00)
[2016-09-06 01:13] LABS: LYMPHOCYTES # 3.2 10^3/ul (0.8-2.9); MONOCYTE # 4.1 10^3/ul (0.3-0.9); MYELOCYTES # 1.7; NEUTROPHIL # 9.5 10^3/ul (1.6-7.5)
[2016-09-06 01:14] LABS: OVALOCYTES FEW; PLATELET ESTIMATE PLT APPEAR DECREASED
[2016-09-06] MEDS ORDERED: LEVOFLOXACIN 250MG/D5W (PMX) 50 ML IVPB SCH (05:00)
[2016-09-06 15:27] LABS: ANA SCREEN NEGATIVE (NEGATIVE)
[2016-09-07 08:27] LABS: MYELOPEROXIDASE ANTIBODY <1.0 AI; PROTEINASE-3 ANTIBODY <1.0 AI
[2016-09-07 17:36] LABS: WHITE BLOOD COUNT 18.5 10^3/ul (4.8-10.8)
== END 2016-09-06 02:10 | disposition expired | DRG 393 ==
LOC: E/R 17:47 → MS1 19:58 → TEL 09-04 07:56 → ICU 09-05 08:42
PROVIDERS: ADMIT Family Medicine; ATTEND Family Medicine
PROC: 06HM33Z Insertion of Infusion Device into Right Femoral Vein, Percutaneous Approach (ICD-10-PCS; principal; 2016-09-05)
PROC: 04HK33Z Insertion of Infusion Device into Right Femoral Artery, Percutaneous Approach (ICD-10-PCS; 2016-09-05)
PROC: 0BH17EZ Insertion of Endotracheal Airway into Trachea, Via Natural or Artificial Opening (ICD-10-PCS; 2016-09-05)
PROC: 5A1935Z Respiratory Ventilation, Less than 24 Consecutive Hours (ICD-10-PCS; 2016-09-05)
PROC: 02HV33Z Insertion of Infusion Device into Superior Vena Cava, Percutaneous Approach (ICD-10-PCS; 2016-09-05)
DX: K42.0 Umbilical hernia with obstruction, without gangrene (principal); N17.0 Acute kidney failure with tubular necrosis; J96.00 Acute respiratory failure, unspecified whether with hypoxia or hypercapnia; A41.9 Sepsis, unspecified organism; R65.21 Severe sepsis with septic shock; I46.9 Cardiac arrest, cause unspecified; E87.0 Hyperosmolality and hypernatremia; I13.0 Hypertensive heart and chronic kidney disease with heart failure and stage 1 through stage 4 chronic kidney disease, or unspecified chronic kidney disease; I50.9 Heart failure, unspecified; R34 Anuria and oliguria; F03.90 Unspecified dementia, unspecified severity, without behavioral disturbance, psychotic disturbance, mood disturbance, and anxiety; Z68.37 Body mass index [BMI] 37.0-37.9, adult; E66.9 Obesity, unspecified; J44.9 Chronic obstructive pulmonary disease, unspecified; E03.9 Hypothyroidism, unspecified; E87.6 Hypokalemia; D64.9 Anemia, unspecified; N18.9 Chronic kidney disease, unspecified
CPT/HCPCS: 31500; 36415; 36556; 36600; 71010; 74000; 74176; 74250; 76775; 76942; 80048; 80053; 81001; 81003; 82043; 82595; 82803; 82962; 83605; 83735; 84100; 84155; 84300; 85025; 85610; 85730; 86021; 86038; 86160; 86226; 86430; 86704; 86709; 86803; 87040; 87081; 87086; 87340; 90935; 93005; 93306; 94002; 94003; 94640; 94664; 94770; 96374; 96375; J1940; A4310; C1750; J0610; J1205; J1265; J1644; J1815; J1956; J2250; J2270; J2370; J2405; J2543; J7030; J7040; J7042; J7060; J7070